=== PATIENT | female | born 1975 | race African-American/Black ===

== ENCOUNTER 2016-07-03 08:03 | Emergency (ER) | payer MEDICARE, MEDICAID ==
[2016-07-03 08:21] VITALS: BP 147/82
[2016-07-03 09:56] LABS: ABSOLUTE EOSINOPHILS # (AUTO) 0.1 10^3/uL (0.0-0.6); ABSOLUTE LYMPHOCYTES (AUTO) 1.6 10^3/uL (0.5-4.7); ABSOLUTE MONOCYTES (AUTO) 0.5 10^3/uL (0.1-1.4); ABSOLUTE NEUT (AUTO) 5.1 10^3/uL (1.7-8.2); BASOPHILS % (AUTO) 0.7 % (0-2); EOSINOPHILS % (AUTO) 0.8 % (0-6); HEMATOCRIT 35.1 % (36.0-47.0); HEMOGLOBIN 11.9 g/dL (12.0-15.5); HGB HCT DIFFERENCE 0.6; LYMPHOCYTES % (AUTO) 21.8 % (13-45); MEAN CORPUSCULAR HEMOGLOBIN 30.4 pg (27.0-33.4); MEAN CORPUSCULAR VOLUME 90 fl (80-97); MONOCYTES % (AUTO) 6.5 % (3-13); RED BLOOD COUNT 3.92 10^6/uL (3.72-5.28); RED CELL DISTRIBUTION WIDTH 14.3 % (11.5-14.0); SEGMENTED NEUTROPHILS % (AUTO) 70.2 % (42-78); WHITE BLOOD COUNT 7.3 10^3/uL (4.0-10.5)
--- NOTE | 2016-07-03 10:05 | ER Document Report ---
ED General - General Chief Complaint: Epigastric Pain Stated Complaint: STOMACH PAIN Mode of Arrival: Ambulatory Information source: Patient Notes: 41 yr old female presents with complaints of 67 (sixty seven) month duration of epigastric abd pain radiating to the back. pt denies any fevers or chills, nausea or vomiting. pt denies being seen for this previously. TRAVEL OUTSIDE OF THE [place] IN LAST 30 DAYS: No - HPI Onset: Other Onset/Duration: Persistent Quality of pain: Cramping Severity: Mild Pain Level: 1 Associated symptoms: None Exacerbated by: Denies Relieved by: Denies Similar symptoms previously: No Recently seen / treated by doctor: No - Related Data Allergies/Adverse Reactions: iodine [Iodine] Allergy (Verified 07/03/16 08:17) Past Medical History - Social History Smoking Status: Current Every Day Smoker Cigarette use (# per day): Yes Chew tobacco use (# tins/day): No Smoking Education Provided: Yes - Patient counselled regarding cessation for 4 minutes Frequency of alcohol use: Occasional Drug Abuse: None Family History: Reviewed & Not Pertinent Patient has suicidal ideation: No Patient has homicidal ideation: No Renal/ Medical History: Denies: Hx Peritoneal Dialysis Psychiatric Medical History: Reports: Hx Anxiety, Hx Bipolar Disorder, Hx Schizophrenia Past Surgical History: Reports: Hx Genitourinary Surgery, Hx Oral Surgery - Immunizations Hx Diphtheria, Pertussis, Tetanus Vaccination: Yes Review of Systems - Review of Systems Notes: REVIEW OF SYSTEMS: CONSTITUTIONAL : Denies fever, chills, or sweats. Denies recent illness. EENT: Denies eye, ear, throat, or mouth pain or symptoms. Denies nasal or sinus congestion or discharge. Denies throat, tongue, or mouth swelling or difficulty swallowing. CARDIOVASCULAR: Denies chest pain. Denies palpitations or racing or irregular heart beat. Denies ankle edema. RESPIRATORY: Denies cough, cold, or chest congestion. Denies shortness of breath, difficulty breathing, or wheezing. GASTROINTESTINAL: admits ot abdominal pain raditing ot the back . GENITOURINARY: Denies difficulty urinating, painful urination, burning, frequency, blood in urine, or discharge. MUSCULOSKELETAL: Denies back or neck pain or stiffness. Denies joint pain or swelling. SKIN: Denies rash, lesions or sores. HEMATOLOGIC : Denies easy bruising or bleeding. LYMPHATIC: Denies swollen, enlarged glands. NEUROLOGICAL: Denies confusion or altered mental status. Denies passing out or loss of consciousness. Denies dizziness or lightheadedness. Denies headache. Denies weakness or paralysis or loss of use of either side. Denies problems with gait or speech. Denies sensory loss, numbness, or tingling. Denies seizures. PSYCHIATRIC: Denies anxiety or stress. Denies depression, suicidal ideation, or homicidal ideation. ALL OTHER SYSTEMS REVIEWED AND NEGATIVE. Dictation was performed using [employer] voice recognition software PHYSICAL EXAMINATION: GENERAL: Well-appearing, well-nourished and in no acute distress. HEAD: Atraumatic, normocephalic. EYES: Pupils equal round and reactive to light, extraocular movements intact, conjunctiva are normal. ENT: Nares patent, oropharynx clear without exudates. Moist mucous membranes. NECK: Normal range of motion, supple without lymphadenopathy LUNGS: Breath sounds clear to auscultation bilaterally and equal. No wheezes rales or rhonchi. HEART: Regular rate and rhythm without murmurs ABDOMEN: Soft, nontender, nondistended abdomen. No guarding, no rebound. No masses appreciated. Female : deferred Musculoskeletal: Normal range of motion, no pitting or edema. No cyanosis. NEUROLOGICAL: Cranial nerves grossly intact. Normal speech, normal gait. Normal sensory, motor exams PSYCH: poor eye contact, slow speech SKIN: Warm, Dry, normal turgor, no rashes or lesions noted. Physical Exam - Vital signs Vitals: Temp Pulse Resp BP Pulse Ox 98.3 F 89 20 147/82 H 100 07/03/16 08:20 07/03/16 08:20 07/03/16 08:20 07/03/16 08:20 07/03/16 08:20 Course - Re-evaluation Re-evalutation: 07/03/16 10:03 Physical examination notes no specific abnormalities,lab work was drawn and pending Pt wishes to leave, I explained to her this is not a compelte work up, patient is alert oriented x3 , has no suicidal or homicdal ideations. I explained ot her risks and benefits and she continues to wants to leave. Will call with results of blood work. Pt was brought back to the room, where she stayed for a few minutes, then immediately said she wanted to leave again, AMA instructions provided again 07/03/16 10:05 After performing a Medical Screening Examination, I spoke with the patient at length in regards to leaving the hospital against medical advice. I do not believe the patient should leave but the patient is alert oriented x4, understands the risks and benefits of staying and leaving including disability and . Pt understands that she can return at any time for further care and is more than welcome to do so. Pt verbalizes this understanding. 07/03/16 16:49 patient given results of completed labs, notified about cmp 07/03/16 16:50 07/03/16 16:51 - Vital Signs Vital signs: Temp Pulse Resp BP Pulse Ox 98.3 F 89 20 147/82 H 100 07/03/16 08:20 07/03/16 08:20 07/03/16 08:20 07/03/16 08:20 07/03/16 08:20 - Laboratory Result Diagrams: 07/03/16 09:35 07/03/16 09:35 Laboratory results interpreted by me: 07/03/16 07/03/16 09:35 09:35 Hgb 11.9 L Hct 35.1 L RDW 14.3 H Urine Ketones TRACE H Discharge - Discharge Clinical Impression: Abdominal pain Qualifiers: Abdominal location: epigastric Qualified Code(s): R10.13 - Epigastric pain Back pain Qualifiers: Back pain location: low back pain Chronicity: chronic Back pain laterality: bilateral Sciatica presence: without sciatica Qualified Code(s): M54.5 - Low back pain; G89.29 - Other chronic pain Disposition: AGAINST MEDICAL ADVICE Additional Instructions: You have left prior to labs and discharge instructions, patient orally explained to return immediately if there is any other concerns Referrals: JASPREET LEE MD [Primary Care Provider] - Follow up tomorrow
[2016-07-03 10:34] LABS: APPEARANCE,URINE CLEAR; BILIRUBIN,URINE NEGATIVE (NEGATIVE); GLUCOSE, URINE NEGATIVE (NEGATIVE); KETONES,URINE TRACE mg/dL (NEGATIVE); LEUKOCYTE ESTERASE,URINE NEGATIVE (NEGATIVE); NITRITE,URINE NEGATIVE (NEGATIVE); PROTEIN,URINE NEGATIVE (NEGATIVE); URINE SPECIFIC GRAVITY 1.017; UROBILINOGEN,URINE NEGATIVE mg/dL (<2.0)
== END 2016-07-03 10:04 | disposition left against medical advice (07) ==
LOC: ER 08:03
DX: R10.13 Epigastric pain (principal); M54.5 Low back pain; G89.29 Other chronic pain; F17.210 Nicotine dependence, cigarettes, uncomplicated; Z71.6 Tobacco abuse counseling; Z88.3 Allergy status to other anti-infective agents; Z53.20 Procedure and treatment not carried out because of patient's decision for unspecified reasons; R53.1 Weakness; R45.850 Homicidal ideations
CPT/HCPCS: 36415; 81001; 81025; 85025; 99281; 99284

== ENCOUNTER 2016-07-03 10:35 | Emergency (ER) | payer MEDICARE, MEDICAID ==
--- NOTE | 2016-07-03 10:43 | ER Document Report ---
ED Medical Screen (RME) - General Stated Complaint: WEAKNESS Time seen by provider: 10:39 Mode of Arrival: Ambulatory Information source: Patient TRAVEL OUTSIDE OF THE [place] IN LAST 30 DAYS: No - HPI Patient complains to provider of: WEAKNESS Onset: Other - 6-7 MONTHS Onset/Duration: Gradual Context: PT WAS JUST HERE THIS AM AND HAD LABS DRAWN. LEFT AMA. Quality of pain: Pressure Severity: Severe Pain Level: 5 Associated Symptoms: Weakness, Other - BACK PAIN Exacerbated by: Denies Relieved by: Denies Similar symptoms previously: Yes Recently seen / treated by doctor: Yes - IN ER THIS AM Notes: 07/03/16 10:43 DENIES SUICIDAL IDEATION, STATES WANTS TO HARM OTHERS AT TIME WHEN ASKED ( LAUGHING WHEN SHE SAYS THIS IN RME) - Related Data Smoking: Cigarettes Frequency of alcohol use: Occasional Drug Abuse: None Pertinent History: BIPOLAR SCHIZOPHRENIA Allergies/Adverse Reactions: iodine [Iodine] Allergy (Verified 07/03/16 08:17) Past Medical History Renal/ Medical History: Denies: Hx Peritoneal Dialysis Psychiatric Medical History: Reports: Hx Anxiety, Hx Bipolar Disorder, Hx Schizophrenia Past Surgical History: Reports: Hx Genitourinary Surgery, Hx Oral Surgery - Immunizations Hx Diphtheria, Pertussis, Tetanus Vaccination: Yes
[2016-07-03 10:46] VITALS: BP 151/88
== END 2016-07-03 11:01 | disposition left against medical advice (07) ==
LOC: ER 10:35
DX: R53.1 Weakness (principal); M54.9 Dorsalgia, unspecified; R45.850 Homicidal ideations; F17.210 Nicotine dependence, cigarettes, uncomplicated; Z88.3 Allergy status to other anti-infective agents; Z53.20 Procedure and treatment not carried out because of patient's decision for unspecified reasons
CPT/HCPCS: 99281

== ENCOUNTER 2016-08-13 17:23 | Emergency (ER) | payer MEDICARE, MEDICAID ==
[2016-08-13 18:07] VITALS: BP 137/97
--- NOTE | 2016-08-13 18:31 | ER Document Report ---
ED Medical Screen (RME) - General Stated Complaint: TEST Notes: Patient comes to the emergency room today via EMS to find out if she is . States last period ended 2 days ago. No pain. I have greeted and performed a rapid initial assessment of this patient. A comprehensive ED assessment and evaluation of the patient, analysis of test results and completion of the medical decision making process will be conducted by additional ED providers. TRAVEL OUTSIDE OF THE [place] IN LAST 30 DAYS: No - Related Data Allergies/Adverse Reactions: iodine [Iodine] Allergy (Verified 07/03/16 08:17) Past Medical History Renal/ Medical History: Denies: Hx Peritoneal Dialysis Psychiatric Medical History: Reports: Hx Anxiety, Hx Bipolar Disorder, Hx Schizophrenia Past Surgical History: Reports: Hx Genitourinary Surgery, Hx Oral Surgery - Immunizations Hx Diphtheria, Pertussis, Tetanus Vaccination: Yes Physical Exam - Vital signs Vitals: Temp Pulse Resp BP Pulse Ox 98.9 F 98 16 137/97 H 98 08/13/16 18:05 08/13/16 18:05 08/13/16 18:05 08/13/16 18:05 08/13/16 18:05 - General General appearance: Appears well, Alert In distress: None Course - Vital Signs Vital signs: Temp Pulse Resp BP Pulse Ox 98.9 F 98 16 137/97 H 98 08/13/16 18:05 08/13/16 18:05 08/13/16 18:05 08/13/16 18:05 08/13/16 18:05
--- NOTE | 2016-08-13 20:20 | ER Document Report ---
HPI - HPI Patient complains to provider of: need for test Onset: Other - Several weeks Onset/Duration: Gradual Quality of pain: No pain Pain Level: Denies Context: Patient presents requesting a test be performed. Patient feels that occasionally she will feel like something is moving in her abdomen and once to make sure that she is not . Patient states she has been having her period regularly each month but would like confirmation that she is not . Associated Symptoms: Other - Movement sensation in her abdomen Exacerbated by: Denies Relieved by: Denies Similar symptoms previously: No Recently seen / treated by doctor: No - ROS ROS below otherwise negative: Yes Systems Reviewed and Negative: Yes All other systems reviewed and negative - CONSTITUTIONAL Constitutional: DENIES: Fever, Chills - NEURO Neurology: DENIES: Headache, Weakness - CARDIOVASCULAR Cardiovascular: DENIES: Chest pain - RESPIRATORY Respiratory: DENIES: Trouble Breathing, Coughing - GASTROINTESTINAL Gastrointestinal: DENIES: Abdominal Pain, Nausea, Patient vomiting, Constipation - REPRODUCTIVE Reproductive: DENIES: : - MUSCULOSKELETAL Musculoskeletal: DENIES: Extremity pain, Back Pain - DERM Skin Color: Normal Skin Problems: None Past Medical History - General Information source: Patient - Social History Smoking Status: Current Every Day Smoker Chew tobacco use (# tins/day): No Frequency of alcohol use: None Drug Abuse: None Lives with: Alone Family History: Reviewed & Not Pertinent Patient has suicidal ideation: No Patient has homicidal ideation: No Renal/ Medical History: Denies: Hx Peritoneal Dialysis Psychiatric Medical History: Reports: Hx Anxiety, Hx Bipolar Disorder, Hx Schizophrenia Past Surgical History: Reports: Hx Genitourinary Surgery, Hx Oral Surgery - Immunizations Hx Diphtheria, Pertussis, Tetanus Vaccination: Yes Vertical Provider Document - CONSTITUTIONAL Agree With Documented VS: Yes Exam Limitations: No Limitations General Appearance: WD/WN, No Apparent Distress - INFECTION CONTROL TRAVEL OUTSIDE OF THE [place] IN LAST 30 DAYS: No - HEENT HEENT: Atraumatic, Normocephalic - NECK Neck: Normal Inspection, Supple - RESPIRATORY Respiratory: Breath Sounds Normal, No Respiratory Distress, Chest Non-Tender O2 Sat by Pulse Oximetry: 98 - CARDIOVASCULAR Cardiovascular: Regular Rate, Regular Rhythm, No Murmur - GI/ABDOMEN Gastrointestinal: Abdomen Soft, Abdomen Non-Tender, No Organomegaly - BACK Back: Normal Inspection. negative: CVA Tenderness-Right, CVA Tenderness-Left - MUSCULOSKELETAL/EXTREMETIES Musculoskeletal/Extremeties: GURWINDER MIRLANDE - NEURO Level of Consciousness: Awake, Alert, Appropriate - DERM Integumentary: Warm, Dry Course - Re-evaluation Re-evalutation: 08/13/16 Patient reiterates that she is not confused or having mental health issues tonight. Patient states that she simply wants to make sure that nothing is going on in her abdomen to cause the sensation that she has been having something feel like it is moving in her abdomen. Patient's mother is at bedside , patient is agreeable to have her care discussed with her family. Mother is concerned that patient's medications might need adjusting as she feels that patient has been confused at times. Daughter is argumentative with her mother stating that she is not crazy that she actually has been having people break into her house. Mother states that daughter has been calling the police several times over the past week regarding suspected break-ins in her apartment. Daughter states that the police did show up and did state that they' ve been having break-ins in her neighborhood.Patient without any suicidal or homicidal ideation. Discussed with patient that she could stay for further mental health evaluation voluntarily if she would like that she can follow-up with her mental health specialist on Tuesday to reevaluate her medication regimen. Patient does not appear to be a harm to herself or anyone else at this time. Patient has her medications with her and states she has been compliant with taking her medications. Patient denies any visual or auditory hallucinations. - Vital Signs Vital signs: Temp Pulse Resp BP Pulse Ox 98.9 F 98 16 137/97 H 98 08/13/16 18:05 08/13/16 18:05 08/13/16 18:05 08/13/16 18:05 08/13/16 18:05 - Laboratory Laboratory results interpreted by me: 08/13/16 21:42 Labs- Last Values Urine HCG, Qual NEGATIVE (NEGATIVE) 08/13/16 19:55 - Diagnostic Test Radiology reviewed: Image reviewed, Reports reviewed Discharge - Discharge Clinical Impression: concern about possible Condition: Stable Disposition: HOME, SELF-CARE Instructions: Normal Exam and Workup ([facility]) Additional Instructions: Return immediately for any new or worsening symptoms Followup with your primary care provider, call Tuesday to make a followup appointment Follow-up with your mental health provider to reevaluate your current medication regimen Referrals: ROCÍO FLORES MD [Primary Care Provider] - 08/16/16 [facility] [Provider Group] - 08/16/16
== END 2016-08-13 21:45 | disposition home or self-care (01) ==
LOC: ER 17:23
DX: Z32.02 Encounter for pregnancy test, result negative (principal); R19.8 Other specified symptoms and signs involving the digestive system and abdomen; F17.200 Nicotine dependence, unspecified, uncomplicated
CPT/HCPCS: 74000; 81025; 99283

== ENCOUNTER 2016-08-14 05:53 | Emergency (ER) | payer MEDICARE, MEDICAID ==
--- NOTE | 2016-08-14 08:47 | ER Document Report ---
ED General - General Chief Complaint: Psych Problem Stated Complaint: PSYCH EVAL Mode of Arrival: Ambulatory Information source: Patient, [facility] Records Notes: This is a 41-year-old female with a prior psychiatric history of depression and anxiety and schizophrenia who presents for evaluation. She is a poor historian but states that she is here because she is concerned that she may have tumors in her stomach in that possibly there is "a baby behind it". She denies any abdominal pain. She cannot tell me why she feels this way. She does state that she has no thoughts of hurting herself or anyone else. She also reports compliance with her medications. TRAVEL OUTSIDE OF THE [place] IN LAST 30 DAYS: No - Related Data Allergies/Adverse Reactions: iodine [Iodine] Allergy (Verified 08/14/16 14:44) Home Medications: Current Home Medications Benztropine Mesylate 1 tab PO BID 08/14/16 [History] Buspirone HCl 1 tab PO TID 08/14/16 [History] Cariprazine Hydrochloride [Vraylar] 1 cap PO QHS 08/14/16 [History] Topiramate 1 tab PO BID 08/14/16 [History] Past Medical History - General Information source: [facility] Records - Social History Smoking Status: Current Every Day Smoker Chew tobacco use (# tins/day): No Frequency of alcohol use: Rare Drug Abuse: None Family History: Reviewed & Not Pertinent Patient has suicidal ideation: No Patient has homicidal ideation: No Renal/ Medical History: Denies: Hx Peritoneal Dialysis Psychiatric Medical History: Reports: Hx Anxiety, Hx Bipolar Disorder, Hx Schizophrenia Past Surgical History: Reports: Hx Genitourinary Surgery, Hx Oral Surgery - Immunizations Hx Diphtheria, Pertussis, Tetanus Vaccination: Yes Review of Systems - Review of Systems Constitutional: No symptoms reported. denies: Chills, Fever EENT: No symptoms reported Cardiovascular: No symptoms reported. denies: Chest pain Respiratory: No symptoms reported. denies: Cough, Short of breath Gastrointestinal: See HPI Genitourinary: No symptoms reported. denies: Dysuria Musculoskeletal: No symptoms reported Skin: No symptoms reported Neurological/Psychological: See HPI Physical Exam - Vital signs Vitals: Temp Pulse Resp BP Pulse Ox 98.2 F 91 16 140/86 H 97 08/14/16 06:10 08/14/16 06:10 08/14/16 06:10 08/14/16 06:10 08/14/16 06:10 - Notes Notes: PHYSICAL EXAMINATION: GENERAL: Well-appearing, well-nourished and in no acute distress. Intermittently cooperative with interview, but at times quiet. HEAD: Atraumatic, normocephalic. EYES: Pupils equal round and reactive to light, extraocular movements intact, sclera anicteric, conjunctiva are normal. ENT: nares patent, oropharynx clear without exudates. Moist mucous membranes. NECK: Normal range of motion, supple without lymphadenopathy LUNGS: Breath sounds clear to auscultation bilaterally and equal. No wheezes rales or rhonchi. HEART: Regular rate and rhythm without murmurs ABDOMEN: Soft, nontender, obese, normoactive bowel sounds. No guarding, no rebound. No masses appreciated. EXTREMITIES: Normal range of motion, no pitting or edema. No cyanosis. NEUROLOGICAL: Cranial nerves grossly intact. Normal gait. No focal motor or sensory deficits noted. PSYCH: Normal mood, flat affect SKIN: Warm, Dry, normal turgor, no rashes or lesions noted. Course - Re-evaluation Re-evalutation: 08/14/16 10:15 Discussed with mental health services who has evaluated the patient. They agree that patient is not a candidate for obviously at this time. However patient does agree to stay voluntarily for continued exploration of psychiatric basis of her abdominal complaints. 08/14/16 11:52 Labs reviewed and within normal limits. Patient is not . She has had multiple conversations with the mental health provider here in the ER, and has gone back and forth with wanting to just leave and then wanting to stay to talk to mental health. She has eaten a meal here. She is feeling fine at this time. She is not a danger to herself or others and meets no criteria for IVC today. At this time she is stable for discharge. She is already a patient at [facility]. She continues to deny any thoughts of hurting herself or others. She will return for any worsening symptoms or concerns. At this time there is no criteria for involuntary commitment. - Vital Signs Vital signs: Temp Pulse Resp BP Pulse Ox 97.9 F 85 16 115/90 H 98 08/14/16 12:14 08/14/16 12:14 08/14/16 12:14 08/14/16 12:14 08/14/16 12:14 - Laboratory Result Diagrams: 08/14/16 07:54 08/14/16 07:54 Laboratory results interpreted by me: 08/14/16 08/14/16 08/14/16 07:54 07:54 07:54 RDW 14.2 H Sodium 146.0 H Chloride 110 H Carbon Dioxide 20 L Urine Blood SMALL H Salicylates < 1.0 L Acetaminophen < 10 L Discharge - Discharge Clinical Impression: concern about possible Schizophrenia Qualifiers: Schizophrenia type: unspecified Qualified Code(s): F20.9 - Schizophrenia, unspecified Condition: Stable Disposition: HOME, SELF-CARE Additional Instructions: Continue your home medications as prescribed. Please follow-up with your mental health provider at [facility] this week. Return to the emergency department or call 911 for any thoughts of hurting herself or others. Return to the ER for any worsening symptoms or concerns. Referrals: ROCÍO FLORES MD [Primary Care Provider] - Follow up as needed
[2016-08-14 09:08] LABS: ABSOLUTE EOSINOPHILS # (AUTO) 0.1 10^3/uL (0.0-0.6); ABSOLUTE LYMPHOCYTES (AUTO) 1.6 10^3/uL (0.5-4.7); ABSOLUTE MONOCYTES (AUTO) 0.5 10^3/uL (0.1-1.4); ABSOLUTE NEUT (AUTO) 3.2 10^3/uL (1.7-8.2); BASOPHILS % (AUTO) 0.6 % (0-2); EOSINOPHILS % (AUTO) 1.9 % (0-6); HEMATOCRIT 37.2 % (36.0-47.0); HEMOGLOBIN 12.4 g/dL (12.0-15.5); LYMPHOCYTES % (AUTO) 29.9 % (13-45); MEAN CORPUSCULAR HEMOGLOBIN 30.5 pg (27.0-33.4); MEAN CORPUSCULAR HGB CONC 33.4 g/dL (32.0-36.0); MEAN CORPUSCULAR VOLUME 91 fl (80-97); MONOCYTES % (AUTO) 8.3 % (3-13); RED BLOOD COUNT 4.08 10^6/uL (3.72-5.28); RED CELL DISTRIBUTION WIDTH 14.2 % (11.5-14.0); SEGMENTED NEUTROPHILS % (AUTO) 59.3 % (42-78); WHITE BLOOD COUNT 5.5 10^3/uL (4.0-10.5)
[2016-08-14 09:14] LABS: ALANINE AMINOTRANSFERASE 22 U/L (9-52); ALBUMIN 4.2 g/dL (3.5-5.0); ALKALINE PHOSPHATASE 70 U/L (38-126); ANION GAP 16 (5-19); ASPARTATE AMINO TRANSFERASE 28 U/L (14-36); BILIRUBIN,TOTAL 0.4 mg/dL (0.2-1.3); BLOOD UREA NITROGEN 12 mg/dL (7-20); CARBON DIOXIDE 20 mmol/L (22-30); CHLORIDE 110 mmol/L (98-107); CREATININE RESULT 0.79 mg/dL (0.52-1.25); GLUCOSE 93 mg/dL (75-110); POTASSIUM 4.5 mmol/L (3.6-5.0); TOTAL PROTEIN 7.4 g/dL (6.3-8.2)
[2016-08-14 09:27] LABS: ALCOHOL < 10 mg/dL (NONE DETECTED)
[2016-08-14 09:28] LABS: APPEARANCE,URINE SLIGHTLY-CLOUDY; BILIRUBIN,URINE NEGATIVE (NEGATIVE); GLUCOSE, URINE NEGATIVE (NEGATIVE); KETONES,URINE NEGATIVE (NEGATIVE); LEUKOCYTE ESTERASE,URINE NEGATIVE (NEGATIVE); NITRITE,URINE NEGATIVE (NEGATIVE); PROTEIN,URINE NEGATIVE (NEGATIVE); URINE SPECIFIC GRAVITY 1.024; UROBILINOGEN,URINE NEGATIVE mg/dL (<2.0)
[2016-08-14 09:46] LABS: URINE BARBITURATES SCREEN NEGATIVE; URINE METHADONE SCREEN NEGATIVE; URINE OPIATES LOW NEGATIVE; URINE PHENCYCLIDINE SCREEN NEGATIVE
[2016-08-14 12:15] VITALS: BP 115/90
--- NOTE | 2016-08-14 15:37 | PSYCHOLOGICAL NOTE ---
Psych Note - Psych Note Psych Note: Per EMS pt has been calling 911 frequently reporting that "people are trying to get into her house." EMS states pt lives alone and has a hx of Schizophrenia. Pt presents today to get her medications checked pt is calm and has a pleasant affect. Pt denies pain. Pt states she doesn't know if she is hearing voices. Pt denies SI or HI. Patient discloses she has a diagnosis of bipolar and schizophrenia. She continued to disclose that she was taking shots however moved to pills and thinks this was a bad choice. She continue disclosed that she hears voices on and off. Patient states that she does have in her past and went to "the [employer]." She continues state that she has a provider [facility] approximately 2 weeks ago. She states that she has no intent to hurt herself or others. Patient denies current suicidal ideation. Patient is concerned about stomach pain; she thinks she is either or had a tumor. Clinician notes patient has been into the ED on multiple occasions with some of her concerns with no findings. Patient states she does not remember being with anybody but she never no when it comes to . Patient states that she had one miscarriage when she was approximately 5 months along and her last was in 2014 which was tubal. Clinician discussed patient's concerns and identified possible correlation to symptoms from patient's unsuccessful pregnancies and her current mental health presentation. Patient seemed to be unwilling or unable to understand this. Patient states she did have an act team in the past however denies she has one now. Patient openly engaged with clinician and describes her past from her first job to becoming independent patient states "money changes people." Patient states she was in a relationship for 4 years but he was "bad." Patient states she is now [place]. Patient is alert and orientated to person place time and circumstance. Mood is euthymic with congruent affect. Patient denies suicidal and homicidal ideation. Patient states that currently there are no auditory or visual hallucinations however disclosed that the voices do come and go. Somatic delusions are noted. Thought process is organized and linear however lapses into "stories of her past." Patient will answer direct questions has low difficulty in moving between her story and questions asked by clinician. Conversational speech was within normal rate tone and prosody. Eye contact was fair. Intellectual abilities appear to be low average range. Attention and concentration are fair. Insight, judgment, impulse control are poor. 298.9 (F29) unspecified schizophrenia spectrum and other psychotic disorder per history provided by patient 296.80(F31.9) unspecified bipolar and related disorder per history provided by patient Impression\\plan: Patient does not meet IVC 3 teary per [place] GS 120 2C. All patient is exhibiting some somatic delusions and discloses auditory hallucinations that come and go, these appear to be baseline for her going back to 2014. Patient adamantly denies was suicidal ideation. Patient is psychiatrically cleared for discharge. Patient is recommended follow-up with home mental health provider [facility]. Dr. Cruz was consulted on [facility] management of this patient; attending physician is in agreement with recommendations and disposition.
--- NOTE | 2016-08-14 16:12 | EKG REPORT ---
SEVERITY:- NORMAL ECG - SINUS RHYTHM : Confirmed by: Juliette Tamez MD 14-Aug-2016 16:11:28
== END 2016-08-14 12:20 | disposition home or self-care (01) ==
LOC: ER 05:53
DX: F20.9 Schizophrenia, unspecified (principal); F32.9 Major depressive disorder, single episode, unspecified; F41.9 Anxiety disorder, unspecified; Z79.899 Other long term (current) drug therapy; F17.200 Nicotine dependence, unspecified, uncomplicated
CPT/HCPCS: 36415; 80053; 80307; 81001; 84703; 85025; 93005; 93010; 99282; 99285

== ENCOUNTER 2016-08-14 14:33 | Emergency (ER) | payer MEDICARE, MEDICAID ==
--- NOTE | 2016-08-14 14:41 | ER Document Report ---
ED Medical Screen (RME) - General Stated Complaint: ABDOMINAL PAIN Notes: This is a 41-year-old female with a prior psychiatric history of depression and anxiety and schizophrenia who returns to the ED after discharge this afternoon. She denies any abdominal pain currently. Denies any nausea, vomiting, diarrhea, constipation. Per previous notes, mental health team says that the patient is not a candidate for obviously at this time. Patient is not . She continues to deny any thoughts of hurting herself or others. TRAVEL OUTSIDE OF THE [place] IN LAST 30 DAYS: No - Related Data Allergies/Adverse Reactions: iodine [Iodine] Allergy (Verified 08/14/16 14:44) Past Medical History Renal/ Medical History: Denies: Hx Peritoneal Dialysis Psychiatric Medical History: Reports: Hx Anxiety, Hx Bipolar Disorder, Hx Schizophrenia Past Surgical History: Reports: Hx Genitourinary Surgery, Hx Oral Surgery - Immunizations Hx Diphtheria, Pertussis, Tetanus Vaccination: Yes
[2016-08-14] MEDS ORDERED: HALOPERIDOL DECANOATE INJ 100 MG/1 ML VIAL IM ONE (16:11)
--- NOTE | 2016-08-14 16:20 | ER Document Report ---
HPI - HPI Patient complains to provider of: prescriptions Pain Level: 4 Context: Patient presents to the emergency department with request for medication prescriptions via EMS. She reports she was discharged earlier today and did not receive her prescriptions. Pancho from mental health reports that they thought patient had prescriptions and would follow-up with [facility]] but it is apparent that she did not since she returned to the ED. Pancho from mental health advises prescription for Cogentin and Haldol. Also advised injection of Haldol 50 mg IM. Patient denies suicide or homicide ideations. Associated Symptoms: None Exacerbated by: Denies Relieved by: Denies Similar symptoms previously: Yes Recently seen / treated by doctor: Yes - REPRODUCTIVE Reproductive: DENIES: : - DERM Skin Color: Normal Past Medical History - General Information source: Patient Last Menstrual Period: 2 days ago - Social History Smoking Status: Current Every Day Smoker Cigarette use (# per day): Yes Chew tobacco use (# tins/day): No Frequency of alcohol use: None Drug Abuse: None Family History: Reviewed & Not Pertinent Patient has suicidal ideation: No Patient has homicidal ideation: No Renal/ Medical History: Denies: Hx Peritoneal Dialysis Psychiatric Medical History: Reports: Hx Anxiety, Hx Bipolar Disorder, Hx Schizophrenia Past Surgical History: Reports: Hx Genitourinary Surgery, Hx Oral Surgery - Immunizations Hx Diphtheria, Pertussis, Tetanus Vaccination: Yes Vertical Provider Document - CONSTITUTIONAL Agree With Documented VS: Yes Exam Limitations: No Limitations General Appearance: WD/WN, No Apparent Distress - Nontoxic looking calm - INFECTION CONTROL TRAVEL OUTSIDE OF THE [place] IN LAST 30 DAYS: No - HEENT HEENT: Atraumatic, Normocephalic - NECK Neck: Supple - RESPIRATORY Respiratory: No Respiratory Distress - CARDIOVASCULAR Cardiovascular: Regular Rate - MUSCULOSKELETAL/EXTREMETIES Musculoskeletal/Extremeties: MIRLANDE PURDY - NEURO Level of Consciousness: Awake, Alert, Appropriate Motor/Sensory: No Motor Deficit - DERM Integumentary: Warm, Dry Course - Re-evaluation Re-evalutation: 08/14/16 16:36 Patient declined Haldol IM. Patient was instructed to follow up with [facility]3] on Tuesday and take medications as prescribed. She verbalized understanding. She reports the Haldol will not work on her anymore because she is immune. When I asked her to clarify the patient was unable to clarify but denied signs and symptoms of allergic reaction. Pt is calm, denies SI/HI. Mental health Nathan reports pt is safe to be discharged. Discharge - Discharge Clinical Impression: medication prescription, Elevated blood pressure reading Condition: Stable Disposition: HOME, SELF-CARE Additional Instructions: *You have been evaluated for your medication prescriptions, elevated blood pressure reading *Take medication as prescribed *Follow up with your mental health provider Tuesday. *Return to ED for worsening condition, changes, needs Monitor your blood pressure. Your blood pressure was elevated today. This may be because you were anxious, in pain or because you need medication. It is important to follow up with your primary care provider for full evaluation. Prescriptions: Benztropine Mesylate [Cogentin 1 mg Tablet] 1 tab PO DAILY #14 tab Haloperidol [Haldol 5 mg Tablet] 5 mg PO DAILY #14 tablet Forms: Elevated Blood Pressure Referrals: [facility] [Outside] - 08/16/16
[2016-08-14 16:40] VITALS: BP 143/92
== END 2016-08-14 16:39 | disposition home or self-care (01) ==
LOC: ER 14:33
DX: Z76.0 Encounter for issue of repeat prescription (principal); R03.0 Elevated blood-pressure reading, without diagnosis of hypertension; F17.210 Nicotine dependence, cigarettes, uncomplicated; Z79.899 Other long term (current) drug therapy
CPT/HCPCS: 99282

== ENCOUNTER 2016-08-14 18:51 | Emergency (ER) | payer MEDICARE, MEDICAID ==
[2016-08-14 19:10] VITALS: BP 154/92
--- NOTE | 2016-08-14 19:26 | ER Document Report ---
ED Medical Screen (RME) - General Stated Complaint: STOMACH PAIN Notes: Patient has checked back in for evaluation of her stomach pain. Patient was discharged twice today for the same complaint. She has not left the department. she refuses treatment at this time. LWVERN I have greeted and performed a rapid initial assessment of this patient. A comprehensive ED assessment and evaluation of the patient, analysis of test results and completion of the medical decision making process will be conducted by additional ED providers. TRAVEL OUTSIDE OF THE U.[place] IN LAST 30 DAYS: No - Related Data Allergies/Adverse Reactions: iodine [Iodine] Allergy (Verified 08/14/16 14:44) Past Medical History Renal/ Medical History: Denies: Hx Peritoneal Dialysis Psychiatric Medical History: Reports: Hx Anxiety, Hx Bipolar Disorder, Hx Schizophrenia Past Surgical History: Reports: Hx Genitourinary Surgery, Hx Oral Surgery - Immunizations Hx Diphtheria, Pertussis, Tetanus Vaccination: Yes Physical Exam - Vital signs Vitals: Temp Pulse Resp BP Pulse Ox 98.5 F 77 14 154/92 H 99 08/14/16 19:09 08/14/16 19:09 08/14/16 19:09 08/14/16 19:09 08/14/16 19:09 Course - Vital Signs Vital signs: Temp Pulse Resp BP Pulse Ox 98.5 F 77 14 154/92 H 99 08/14/16 19:09 08/14/16 19:09 08/14/16 19:09 08/14/16 19:09 08/14/16 19:09
== END 2016-08-14 19:38 | disposition left against medical advice (07) ==
LOC: ER 18:51
DX: R10.9 Unspecified abdominal pain (principal)
CPT/HCPCS: 99281

== ENCOUNTER 2016-08-16 12:23 | Emergency (ER) | payer MEDICARE, MEDICAID ==
--- NOTE | 2016-08-16 13:40 | ER Document Report ---
ED Medical Screen (RME) - General Stated Complaint: IVC WITH PAPERS Time seen by provider: 13:39 Mode of Arrival: Ambulatory Information source: Patient Notes: 41-year-old female presents to ED after having an IVC papers taken out as she is a schizophrenic paranoid bipolar not taken her medications hearing voices and has her home with 2 children threatens to hurt self. While in RME she states she's not thinking about hurting himself but her voice is to talk to her I have greeted and performed a rapid initial assessment of this patient. A comprehensive ED assessment and evaluation of the patient, analysis of test results and completion of medical decision making process will be conducted by an additional ED providers. TRAVEL OUTSIDE OF THE [place] IN LAST 30 DAYS: No - Related Data Allergies/Adverse Reactions: iodine [Iodine] Allergy (Verified 08/14/16 14:44) Past Medical History Renal/ Medical History: Denies: Hx Peritoneal Dialysis Psychiatric Medical History: Reports: Hx Anxiety, Hx Bipolar Disorder, Hx Schizophrenia Past Surgical History: Reports: Hx Genitourinary Surgery, Hx Oral Surgery - Immunizations Hx Diphtheria, Pertussis, Tetanus Vaccination: Yes Physical Exam - Vital signs Vitals: Temp Pulse Resp BP Pulse Ox 98.5 F 96 16 138/98 H 97 08/16/16 13:31 08/16/16 13:31 08/16/16 13:31 08/16/16 13:31 08/16/16 13:31 Course - Vital Signs Vital signs: Temp Pulse Resp BP Pulse Ox 98.5 F 96 16 138/98 H 97 08/16/16 13:31 08/16/16 13:31 08/16/16 13:31 08/16/16 13:31 08/16/16 13:31
[2016-08-16 15:20] LABS: ABSOLUTE BASOPHILS # (AUTO) 0.1 10^3/uL (0.0-0.2); ABSOLUTE EOSINOPHILS # (AUTO) 0.1 10^3/uL (0.0-0.6); ABSOLUTE LYMPHOCYTES (AUTO) 1.6 10^3/uL (0.5-4.7); ABSOLUTE MONOCYTES (AUTO) 0.3 10^3/uL (0.1-1.4); ABSOLUTE NEUT (AUTO) 3.6 10^3/uL (1.7-8.2); BASOPHILS % (AUTO) 1.2 % (0-2); EOSINOPHILS % (AUTO) 1.9 % (0-6); HEMATOCRIT 36.2 % (36.0-47.0); HEMOGLOBIN 12.1 g/dL (12.0-15.5); HGB HCT DIFFERENCE 0.1; LYMPHOCYTES % (AUTO) 28.6 % (13-45); MEAN CORPUSCULAR HGB CONC 33.4 g/dL (32.0-36.0); MEAN CORPUSCULAR VOLUME 90 fl (80-97); MONOCYTES % (AUTO) 5.9 % (3-13); RED BLOOD COUNT 4.03 10^6/uL (3.72-5.28); RED CELL DISTRIBUTION WIDTH 13.9 % (11.5-14.0); SEGMENTED NEUTROPHILS % (AUTO) 62.4 % (42-78); WHITE BLOOD COUNT 5.8 10^3/uL (4.0-10.5)
[2016-08-16 15:21] LABS: BLOOD UREA NITROGEN 12 mg/dL (7-20); CALCIUM 10.1 mg/dL (8.4-10.2); CARBON DIOXIDE 24 mmol/L (22-30); CHLORIDE 107 mmol/L (98-107); CREATININE RESULT 0.91 mg/dL (0.52-1.25); GLUCOSE 93 mg/dL (75-110); POTASSIUM 4.5 mmol/L (3.6-5.0)
[2016-08-16 15:22] LABS: ALANINE AMINOTRANSFERASE 35 U/L (9-52); ALBUMIN 4.5 g/dL (3.5-5.0); ALCOHOL < 10 mg/dL (NONE DETECTED); ALKALINE PHOSPHATASE 69 U/L (38-126); ANION GAP 12 (5-19); ASPARTATE AMINO TRANSFERASE 42 U/L (14-36); BILIRUBIN,DIRECT 0.3 mg/dL (0.0-0.4); BILIRUBIN,TOTAL 0.5 mg/dL (0.2-1.3); SODIUM 143.4 mmol/L (137-145); TOTAL PROTEIN 7.8 g/dL (6.3-8.2)
[2016-08-16 15:34] LABS: APPEARANCE,URINE CLEAR; BILIRUBIN,URINE NEGATIVE (NEGATIVE); GLUCOSE, URINE NEGATIVE (NEGATIVE); KETONES,URINE TRACE mg/dL (NEGATIVE); LEUKOCYTE ESTERASE,URINE NEGATIVE (NEGATIVE); NITRITE,URINE NEGATIVE (NEGATIVE); PROTEIN,URINE NEGATIVE (NEGATIVE); URINE SPECIFIC GRAVITY 1.009; UROBILINOGEN,URINE NEGATIVE mg/dL (<2.0)
[2016-08-16 15:49] LABS: URINE BARBITURATES SCREEN NEGATIVE; URINE METHADONE SCREEN NEGATIVE; URINE OPIATES LOW NEGATIVE; URINE PHENCYCLIDINE SCREEN NEGATIVE
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
--- NOTE | 2016-08-16 16:05 | ER Document Report ---
ED General - General Chief Complaint: Psych Problem Stated Complaint: IVC WITH PAPERS Mode of Arrival: Ambulatory Information source: Patient, Law Enforcement, H Records Notes: 41-year-old female history of paranoid schizophrenia presents being off her medication for the past 3 months after calling the police 17 times in the past week with concerns that people were in her house. Patient denies any other concerns denies any medical problems at this time TRAVEL OUTSIDE OF THE [place] IN LAST 30 DAYS: No - HPI Onset: Last week Onset/Duration: Persistent Quality of pain: No pain Severity: Mild Pain Level: Denies Associated symptoms: Other Exacerbated by: Denies Relieved by: Denies Similar symptoms previously: Yes Recently seen / treated by doctor: Yes - Related Data Allergies/Adverse Reactions: iodine [Iodine] Allergy (Verified 08/16/16 13:40) Past Medical History - General Information source: Patient - Social History Smoking Status: Current Every Day Smoker Cigarette use (# per day): Yes Chew tobacco use (# tins/day): No Smoking Education Provided: Yes - Patient counselled regarding cessation for 4 minutes Frequency of alcohol use: Occasional Drug Abuse: None Family History: Reviewed & Not Pertinent Patient has suicidal ideation: No Patient has homicidal ideation: No Renal/ Medical History: Denies: Hx Peritoneal Dialysis Psychiatric Medical History: Reports: Hx Anxiety, Hx Bipolar Disorder, Hx Schizophrenia Past Surgical History: Reports: Hx Genitourinary Surgery, Hx Oral Surgery - Immunizations Hx Diphtheria, Pertussis, Tetanus Vaccination: Yes Review of Systems - Review of Systems Notes: REVIEW OF SYSTEMS: CONSTITUTIONAL : Denies fever, chills, or sweats. Denies recent illness. EENT: Denies eye, ear, throat, or mouth pain or symptoms. Denies nasal or sinus congestion or discharge. Denies throat, tongue, or mouth swelling or difficulty swallowing. CARDIOVASCULAR: Denies chest pain. Denies palpitations or racing or irregular heart beat. Denies ankle edema. RESPIRATORY: Denies cough, cold, or chest congestion. Denies shortness of breath, difficulty breathing, or wheezing. GASTROINTESTINAL: Denies abdominal pain or distention. Denies nausea, vomiting , or diarrhea. Denies blood in vomitus, stools, or per rectum. Denies black, tarry stools. Denies constipation. GENITOURINARY: Denies difficulty urinating, painful urination, burning, frequency, blood in urine, or discharge. FEMALE GENITOURINARY: Denies vaginal bleeding, heavy or abnormal periods, irregular periods. Denies vaginal discharge or odor. MUSCULOSKELETAL: Denies back or neck pain or stiffness. Denies joint pain or swelling. SKIN: Denies rash, lesions or sores. HEMATOLOGIC : Denies easy bruising or bleeding. LYMPHATIC: Denies swollen, enlarged glands. NEUROLOGICAL: Denies confusion or altered mental status. Denies passing out or loss of consciousness. Denies dizziness or lightheadedness. Denies headache. Denies weakness or paralysis or loss of use of either side. Denies problems with gait or speech. Denies sensory loss, numbness, or tingling. Denies seizures. PSYCHIATRIC: Denies anxiety or stress. Denies depression, suicidal ideation, or homicidal ideation. ALL OTHER SYSTEMS REVIEWED AND NEGATIVE. Dictation was performed using [employer] recognition software PHYSICAL EXAMINATION: GENERAL: Well-appearing, well-nourished and in no acute distress. HEAD: Atraumatic, normocephalic. EYES: Pupils equal round and reactive to light, extraocular movements intact, conjunctiva are normal. ENT: Nares patent, oropharynx clear without exudates. Moist mucous membranes. NECK: Normal range of motion, supple without lymphadenopathy LUNGS: Breath sounds clear to auscultation bilaterally and equal. No wheezes rales or rhonchi. HEART: Regular rate and rhythm without murmurs ABDOMEN: Soft, nontender, nondistended abdomen. No guarding, no rebound. No masses appreciated. Female : deferred Musculoskeletal: Normal range of motion, no pitting or edema. No cyanosis. NEUROLOGICAL: Cranial nerves grossly intact. Normal speech, normal gait. Normal sensory, motor exams PSYCH: Normal mood, normal affect. Patient does become angry when speaking with the police SKIN: Warm, Dry, normal turgor, no rashes or lesions noted. Physical Exam - Vital signs Vitals: Temp Pulse Resp BP Pulse Ox 98.5 F 96 16 138/98 H 97 08/16/16 13:31 08/16/16 13:31 08/16/16 13:31 08/16/16 13:31 08/16/16 13:31 Course - Re-evaluation Re-evalutation: 08/16/16 16:08 Patient appears to be at her baseline paranoid schizophrenia. She was IVC but given that she is a normal harm to others or herself I do not believe is appropriate to keep her. Therefore at her request I will let the patient be discharged. She mental health has evaluated the patient and has given resources both at home and for outpatient After performing a Medical Screening Examination, I estimate there is LOW risk for ACUTE CORONARY SYNDROME, RESPIRATORY FAILURE, SEPSIS OR MENINGITIS, thus I consider the discharge disposition reasonable. The patient and I have discussed the diagnosis and risks, and we agree with discharging home with close follow- up. We also discussed returning to the Emergency Department immediately if new or worsening symptoms occur. We have discussed the symptoms which are most concerning (e.g., changing or worsening pain, trouble swallowing or breathing, neck stiffness, fever) that necessitate immediate return. - Vital Signs Vital signs: Temp Pulse Resp BP Pulse Ox 98.5 F 96 16 138/98 H 97 08/16/16 13:31 08/16/16 13:31 08/16/16 13:31 08/16/16 13:31 08/16/16 13:31 - Laboratory Result Diagrams: 08/16/16 14:43 08/16/16 14:43 Laboratory results interpreted by me: 08/16/16 08/16/16 14:05 14:43 AST 42 H Urine Ketones TRACE H Salicylates < 1.0 L Acetaminophen < 10 L Discharge - Discharge Clinical Impression: Paranoid schizophrenia Condition: Stable Disposition: HOME, SELF-CARE Additional Instructions: Please follow-up with the care plan provided to you by mental health team will return immediately if there are any other concerns
[2016-08-16 16:18] VITALS: BP 150/101
--- NOTE | 2016-08-16 18:35 | EKG REPORT ---
SEVERITY:- NORMAL ECG - SINUS RHYTHM : Confirmed by: Blayne Shirley MD 16-Aug-2016 18:35:07
== END 2016-08-16 16:18 | disposition home or self-care (01) ==
LOC: ER 12:23
DX: F20.0 Paranoid schizophrenia (principal)
CPT/HCPCS: 36415; 80053; 80307; 81001; 84703; 85025; 93005; 93010; 99285

== ENCOUNTER 2016-08-22 02:56 | Emergency (ER) | payer MEDICARE, MEDICAID ==
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
[2016-08-22 04:54] LABS: ABSOLUTE LYMPHOCYTES (AUTO) 1.7 10^3/uL (0.5-4.7); ABSOLUTE MONOCYTES (AUTO) 0.5 10^3/uL (0.1-1.4); ABSOLUTE NEUT (AUTO) 2.2 10^3/uL (1.7-8.2); BASOPHILS % (AUTO) 0.4 % (0-2); HEMATOCRIT 34.2 % (36.0-47.0); HEMOGLOBIN 11.3 g/dL (12.0-15.5); HGB HCT DIFFERENCE -0.3; LYMPHOCYTES % (AUTO) 38.4 % (13-45); MEAN CORPUSCULAR HGB CONC 33.1 g/dL (32.0-36.0); MEAN CORPUSCULAR VOLUME 91 fl (80-97); MONOCYTES % (AUTO) 11.7 % (3-13); RED BLOOD COUNT 3.78 10^6/uL (3.72-5.28); SEGMENTED NEUTROPHILS % (AUTO) 48.5 % (42-78); WHITE BLOOD COUNT 4.5 10^3/uL (4.0-10.5)
[2016-08-22 04:59] LABS: ALANINE AMINOTRANSFERASE 47 U/L (9-52); ALBUMIN 4.1 g/dL (3.5-5.0); ALKALINE PHOSPHATASE 61 U/L (38-126); ANION GAP 12 (5-19); ASPARTATE AMINO TRANSFERASE 96 U/L (14-36); BILIRUBIN,DIRECT 0.3 mg/dL (0.0-0.4); BLOOD UREA NITROGEN 14 mg/dL (7-20); CALCIUM 9.5 mg/dL (8.4-10.2); CARBON DIOXIDE 23 mmol/L (22-30); CHLORIDE 107 mmol/L (98-107); CREATININE RESULT 0.83 mg/dL (0.52-1.25); GLUCOSE 82 mg/dL (75-110)
[2016-08-22 05:00] LABS: ALCOHOL < 10 mg/dL (NONE DETECTED)
[2016-08-22] MEDS ORDERED: ZIPRASIDONE MESYLATE INJ/PF 20 MG SDV IM ONE (07:13)
--- NOTE | 2016-08-22 09:01 | EKG REPORT ---
SEVERITY:- NORMAL ECG - SINUS RHYTHM : Confirmed by: Blayne Shirley MD 22-Aug-2016 09:00:11
--- NOTE | 2016-08-22 13:09 | PSYCHOLOGICAL NOTE ---
Psych Note - Psych Note Psych Note: Patient is a 41 year old female who presents under IVC, petitioned by mobile ornamental ironworkerRos with [facility] stating she is psychotic, medication noncompliant with her medications, and perseverative on evil spirits. Patient was reportedly found after she left the home, with mud all over her legs and no shoes, and disoriented. Patient today states she is fine and would like to go home. Patient states she is here because of anxiety and needs her Vistaril and Cogentin. Patient states she does at times hear voices but is not hearing them right now. Patient is accompanied by her mother who is bedside. Patient has continued to state she does not need to use the restroom and refuses to provide a urine sample. Patient did provide a urine sample earlier today however it was knocked into the toilet at which time she attempted to scooped out the urine. Patient was redirected and easily return to her room. Patient's mother, Valentin Mendoza states: The patient has been getting progressively worse. She states for around the past 3 or so months she has been deteriorating, repeatedly thinks people are breaking into her home and in one month placed 35 calls to 911. She states last week alone she called 911 17 times to report an intruder. Mother states previously, the patient would come to her home feel safe and stay; however, recently will come in walk around engaged in minimal conversation and then leave without notification. Mother states she has always maintained contact, but recently only for hours without any type of communication. Mother states Tuesday patient throughout all of her body wash food and drinks because there were evil spirits. Mother states she has not bathed or eaten. Mother states Tuesday was when he left without notification and later returned covered in mud up to her knees, in her pajamas, with no jacket and no shoes. Mother states she feels as though the patient has lost the ability to care for herself. She states when she is on her medications she is able to function independently. Unspecified schizophrenia and related psychotic disorder R/O Schizoeffective, Bipolar Type Patient is alert and oriented to name. Mood is euphoric with congruent affect. Patient denies suicidal/homicidal ideations. Patient is observed responding to internal stimuli. Delusions were noted. Thought processes were guarded. Conversational speech was singsong the area and intellectual abilities were estimated within average range. Attention and focus were poor. Insight, judgment, impulse control were poor. Patient is recommended to continue under IVC and seek 24-hour inpatient commitment. Note patient was seen in this department and evaluated by this clinician last week. Her clinical presentation has drastically changed in patient is now considered a danger to herself. Patient presents after exercising poor judgment and decision-making and possibly risking her own safety. Patient is delusional the individuals are breaking into her home despite numerous attempts at redirection by MARCO A and mother. Patient's insight into her mental illness is poor placing her at risk for further incident. Noted from last week's evaluation, patient in the past has engaged in ACT services. Also noted from last week's evaluation numerous pill bottles suggested medication noncompliance 3 or so months. As well as sample packets of an antipsychotic provided to her by her psychiatric provider. Insulted with Dr. Cruz in regards to the care and management of this patient.
[2016-08-22] MEDS ORDERED: OLANZAPINE INJ/PF 10 MG SDV IM ONE (14:01)
[2016-08-22] MEDS ORDERED: BENZTROPINE MESYLATE INJ 2 MG/2 ML AMPULE IM SCH ×2 (14:15→18:00)
[2016-08-22 17:49] LABS: APPEARANCE,URINE SLIGHTLY-CLOUDY; BILIRUBIN,URINE NEGATIVE (NEGATIVE); GLUCOSE, URINE NEGATIVE (NEGATIVE); KETONES,URINE 20 mg/dL (NEGATIVE); LEUKOCYTE ESTERASE,URINE NEGATIVE (NEGATIVE); NITRITE,URINE NEGATIVE (NEGATIVE); PROTEIN,URINE NEGATIVE (NEGATIVE); URINE SPECIFIC GRAVITY 1.021; UROBILINOGEN,URINE NEGATIVE mg/dL (<2.0)
[2016-08-22] MEDS ORDERED: OLANZAPINE INJ/PF 10 MG SDV IM SCH (18:00)
[2016-08-22 18:04] LABS: URINE BARBITURATES SCREEN NEGATIVE; URINE METHADONE SCREEN NEGATIVE; URINE OPIATES LOW NEGATIVE; URINE PHENCYCLIDINE SCREEN NEGATIVE
[2016-08-22] MEDS: OLANZAPINE INJ/PF 10 MG SDV IM SCH (19:01)
[2016-08-23] MEDS ORDERED: HYDROXYZINE PAMOATE 50 MG CAPSULE PO ONE (10:02)
[2016-08-23] MEDS: OLANZAPINE INJ/PF 10 MG SDV IM SCH (12:30)
--- NOTE | 2016-08-23 17:37 | ER Document Report ---
Doctor's Note Notes: 08/23/16 17:35 Rounds: Chart reviewed and patient interviewed. Vital signs have all been normal. Lab studies have also been normal. Patient appears to be medically stable for transfer or discharge. Patient has been evaluated by mental health feels that the patient should be transferred for inpatient care. She is awaiting transport to [facility]. Landon Garrido M.D.
[2016-08-23] MEDS ORDERED: BENZTROPINE MESYLATE 1 MG TABLET PO ONE (19:30)
[2016-08-23] MEDS ORDERED: OLANZAPINE 5 MG TABLET PO ONE (19:30)
[2016-08-23 19:40] VITALS: BP 141/97
== END 2016-08-23 19:15 ==
LOC: ER 02:56
DX: F20.9 Schizophrenia, unspecified (principal); T50.906A Underdosing of unspecified drugs, medicaments and biological substances, initial encounter; Z91.128 Patient's intentional underdosing of medication regimen for other reason; Z91.14 Patient's other noncompliance with medication regimen; Z75.1 Person awaiting admission to adequate facility elsewhere
CPT/HCPCS: 93005; 99285; 96372; 36415; 80307 ×4; 85025; 80053; 81001; 93010; A9270 ×3; J0515

== ENCOUNTER 2016-09-16 15:01 | Observation (INO) | payer MEDICARE, MEDICAID ==
--- NOTE | 2016-09-16 17:39 | ER Document Report ---
ED Medical Screen (RME) - General Chief Complaint: Abscess Stated Complaint: ABSCESS Notes: 41-year-old female patient reports painful abscesses to the right buttock started about 3 weeks ago, at least one of them is draining. She has had this problem before and had to have it drained but is been quite some time. I have greeted and performed a rapid initial assessment of this patient. A comprehensive ED assessment and evaluation of the patient, analysis of test results and completion of the medical decision making process will be conducted by additional ED providers. TRAVEL OUTSIDE OF THE [place] IN LAST 30 DAYS: No - Related Data Allergies/Adverse Reactions: iodine [Iodine] Allergy (Verified 09/16/16 17:31) Past Medical History Renal/ Medical History: Denies: Hx Peritoneal Dialysis Psychiatric Medical History: Reports: Hx Anxiety, Hx Bipolar Disorder, Hx Schizophrenia Past Surgical History: Reports: Hx Genitourinary Surgery, Hx Oral Surgery - Immunizations Hx Diphtheria, Pertussis, Tetanus Vaccination: Yes Physical Exam - Vital signs Vitals: Temp Pulse Resp BP Pulse Ox 99 F 107 H 16 150/82 H 99 09/16/16 15:39 09/16/16 15:39 09/16/16 15:39 09/16/16 15:39 09/16/16 15:39 Course - Vital Signs Vital signs: Temp Pulse Resp BP Pulse Ox 99 F 107 H 16 150/82 H 99 09/16/16 15:39 09/16/16 15:39 09/16/16 15:39 09/16/16 15:39 09/16/16 15:39
--- NOTE | 2016-09-16 20:40 | ER Document Report ---
ED Skin Rash/Insect Bite/Abscs - General Chief Complaint: Abscess Stated Complaint: ABSCESS Time seen by provider: 20:35 Notes: Patient is a 41-year-old female that comes emergency department for chief complaint of an abscess in the inner left buttock area, she states this was drained about 2 weeks ago at [facility] with an incision, she states that the incision has begun draining more and more pus in the area has become more tender. She states she is taking baths multiple times a day to try to clean this out. She states a few days ago she felt like she had a fever, denies any today, denies diabetes. Patient has a history of schizophrenia, she states she was admitted to to [facility] for this after she went began hearing voices, she states that she is doing fine today and she is not here for psychiatric evaluation. TRAVEL OUTSIDE OF THE [place] IN LAST 30 DAYS: No - Related Data Allergies/Adverse Reactions: iodine [Iodine] Allergy (Verified 09/16/16 17:31) Past Medical History - General Information source: Patient - Social History Smoking Status: Never Smoker Frequency of alcohol use: None Drug Abuse: None Lives with: Family Family History: Reviewed & Not Pertinent Patient has suicidal ideation: No Patient has homicidal ideation: No Renal/ Medical History: Denies: Hx Peritoneal Dialysis Psychiatric Medical History: Reports: Hx Anxiety, Hx Bipolar Disorder, Hx Schizophrenia Past Surgical History: Reports: Hx Genitourinary Surgery, Hx Oral Surgery - Immunizations Hx Diphtheria, Pertussis, Tetanus Vaccination: Yes Review of Systems - Review of Systems Constitutional: See HPI EENT: No symptoms reported Cardiovascular: No symptoms reported Respiratory: No symptoms reported Gastrointestinal: No symptoms reported Genitourinary: No symptoms reported Female Genitourinary: No symptoms reported Musculoskeletal: No symptoms reported Skin: See HPI Hematologic/Lymphatic: No symptoms reported Neurological/Psychological: No symptoms reported Physical Exam - Vital signs Vitals: Temp Pulse Resp BP Pulse Ox 99 F 107 H 16 150/82 H 99 09/16/16 15:39 09/16/16 15:39 09/16/16 15:39 09/16/16 15:39 09/16/16 15:39 Interpretation: Normal - General General appearance: Appears well In distress: None - no signs of distress although patient is lying on her side to avoid lying on the buttock - HEENT Head: Normocephalic, Atraumatic Eyes: Normal Conjunctiva: Normal Extraocular movements intact: Yes Eyelashes: Normal Pupils: PERRL Mouth/Lips: Normal Mucous membranes: Normal Pharynx: Normal Neck: Normal - Respiratory Respiratory status: No respiratory distress Chest status: Nontender Breath sounds: Normal. No: Decreased air movement, Wheezing Chest palpation: Normal - Cardiovascular Rhythm: Regular, Tachycardia Heart sounds: Normal auscultation, S1 appreciated, S2 appreciated Murmur: No - Abdominal Inspection: Normal Distension: No distension Bowel sounds: Normal Tenderness: Nontender Organomegaly: No organomegaly - Back Back: Normal, Nontender. No: Tender - Extremities General upper extremity: Normal inspection, Nontender, Normal color, Normal ROM , Normal temperature General lower extremity: Normal inspection, Nontender, Normal color, Normal ROM , Normal temperature, Normal weight bearing. No: Britney's sign - Neurological Neuro grossly intact: Yes Cognition: Normal Orientation: AAOx4 Benny Coma Scale Eye Opening: Spontaneous Benny Coma Scale Verbal: Oriented Benny Coma Scale Motor: Obeys Commands Cool Coma Scale Total: 15 Speech: Normal Motor strength normal: LUE, RUE, LLE, RLE Sensory: Normal - Psychological Associated symptoms: Other - occassional delayed responses, however she is oriented and cooperative. not responding to internal stimuli. Patient is calm - Skin Skin Temperature: Warm Skin Moisture: Dry Skin Color: Normal Location of irregularity: Other - Left inner buttock with a 3 cm vertical old incision which is very open with current pouring from the opening, induration around the incision tracking near the rectum but not including the rectum, also induration tracking down toward the perineum almost to the labia. Course - Re-evaluation Re-evalutation: Patient has an area in the medial left buttock which appears to be a nonhealing wound persistent purulent drainage which is continuous on my examinations. There is induration extending down the buttock towards the perineum and almost to the labia, there does not appear to be involvement of the perirectal area directly. Patient is afebrile, denies fever today, patient does not have diabetes. CBC does not show leukocytosis. Called and spoke with Dr. Willis, he recommends a CT of the abdomen and pelvis without contrast to assess for 09/17/16 CT showing cellulitis versus phlegmon in the left medial buttock but no discrete abscess is visualized. Called and spoke with Dr. Willis again, discussed imaging, he states he will come see the patient. Patient given a dose of vancomycin. Tachycardia has resolved. Dr. Willis evaluated patient at bedside, abscess is still profusely draining, area of induration is fairly extensive, he will admit the patient for planned operating room procedure for drainage in the morning. Patient states she is in full agreement with this plan. - Vital Signs Vital signs: Temp Pulse Resp BP Pulse Ox 98.5 F 85 16 132/61 H 99 09/17/16 01:03 09/17/16 01:03 09/17/16 01:03 09/17/16 01:03 09/17/16 01:03 - Laboratory Result Diagrams: 09/16/16 21:52 09/16/16 21:52 Laboratory results interpreted by me: 09/16/16 09/16/16 21:52 21:52 RBC 3.50 L Hgb 10.2 L Hct 30.8 L Glucose 74 L Discharge - Discharge Clinical Impression: Left buttock abscess Condition: Stable Disposition: ADMITTED INPATIENT Admitting Provider: Surgicalist Unit Admitted: Surgical Floor
[2016-09-16] MEDS ORDERED: HALOPERIDOL LACTATE INJ 5 MG/1 ML VIAL IM ONE (21:05)
[2016-09-16 22:03] LABS: ABSOLUTE BASOPHILS # (AUTO) 0.1 10^3/uL (0.0-0.2); ABSOLUTE LYMPHOCYTES (AUTO) 1.9 10^3/uL (0.5-4.7); ABSOLUTE MONOCYTES (AUTO) 0.9 10^3/uL (0.1-1.4); ABSOLUTE NEUT (AUTO) 4.8 10^3/uL (1.7-8.2); BASOPHILS % (AUTO) 0.7 % (0-2); EOSINOPHILS % (AUTO) 0.5 % (0-6); HEMATOCRIT 30.8 % (36.0-47.0); HEMOGLOBIN 10.2 g/dL (12.0-15.5); HGB HCT DIFFERENCE -0.2; MEAN CORPUSCULAR HEMOGLOBIN 29.3 pg (27.0-33.4); MEAN CORPUSCULAR HGB CONC 33.2 g/dL (32.0-36.0); MEAN CORPUSCULAR VOLUME 88 fl (80-97); MONOCYTES % (AUTO) 11.1 % (3-13); RED CELL DISTRIBUTION WIDTH 13.4 % (11.5-14.0); SEGMENTED NEUTROPHILS % (AUTO) 62.7 % (42-78); WHITE BLOOD COUNT 7.7 10^3/uL (4.0-10.5)
[2016-09-16 22:17] LABS: ANION GAP 14 (5-19); BLOOD UREA NITROGEN 15 mg/dL (7-20); CALCIUM 9.9 mg/dL (8.4-10.2); CARBON DIOXIDE 24 mmol/L (22-30); CHLORIDE 103 mmol/L (98-107); CREATININE RESULT 0.77 mg/dL (0.52-1.25); GLUCOSE 74 mg/dL (75-110); POTASSIUM 4.2 mmol/L (3.6-5.0)
[2016-09-16] MEDS ORDERED: FAMOTIDINE INJ/PF 20 MG/2 ML SDV IV ONE (23:18)
[2016-09-16] MEDS ORDERED: METHYLPREDNISOLONE INJ 125 MG/2 ML SDV IV ONE (23:18)
[2016-09-16] MEDS ORDERED: DIPHENHYDRAMINE HCL 50 MG/ML VIAL IV ONE (23:18)
[2016-09-17] MEDS ORDERED: VANCOMYCIN HCL INJ 1000 MG VIAL IV ONE (00:33)
[2016-09-17] MEDS ORDERED: NORMAL SALINE 1000 ML 1,000 ML IV PRN (01:13)
--- NOTE | 2016-09-17 01:13 | PDOC H&P ---
History of Present Illness History of Present Illness: RODERICK CRONIN is a 41 year old female who was noted with a left buttocks abscess at an outside hospital where she underwent incision and drainage about couple weeks ago. Patient has had the persistent drainage possible fever and continued the pain in this region. Uncertain whether she has increased pain with bowel movement and this region. No abdominal pain. Patient has the schizophrenia and she has had involuntary commitments in the past but she had been recently cleared for discharge. She takes care of herself at home. Past Medical History Cardiac Medical History: Reports: None Pulmonary Medical History: Reports: None Endocrine Medical History: Reports: None Psychiatric Medical History: Reports: Bipolar Disorder Past Surgical History Past Surgical History: Reports: Other - Ectopic in the past. No recent [employer] surgeries. Social History Lives with: Family Smoking Status: Current Some Day Smoker Frequency of Alcohol Use: Rare Drugs: None Family History Family History: Reviewed & Not Pertinent Parental Family History Reviewed: No Children Family History Reviewed: No Sibling(s) Family History Reviewed.: No Medication/Allergy Home Medications: Benztropine Mesylate [Cogentin 1 mg Tablet] 1 mg PO BID 08/23/16 Buspirone HCl [Buspar 30 mg Tablet] 30 mg PO BID 08/23/16 Cariprazine Hydrochloride [Vraylar] 6 mg PO QHS 08/23/16 Allergies/Adverse Reactions: iodine [Iodine] Allergy (Verified 09/16/16 17:31) Physical Exam Vital Signs: Temp Pulse Resp BP Pulse Ox 99 F 107 H 16 150/82 H 99 09/16/16 15:39 09/16/16 15:39 09/16/16 15:39 09/16/16 15:39 09/16/16 15:39 Intake & Output 09/15/16 09/16/16 09/17/16 06:59 06:59 06:59 Weight 86 kg General appearance: PRESENT: no acute distress, cooperative Neck exam: PRESENT: other - Supple with no tenderness Respiratory exam: PRESENT: chest wall tenderness Cardiovascular exam: PRESENT: RRR GI/Abdominal exam: PRESENT: other - Soft, nondistended, nontender to palpation. Rectal exam: PRESENT: other - Normal tone with no pain with the help patient. Induration however felt on the left side. No drainage from the anal canal.. Musculoskeletal exam: PRESENT: other - Left buttocks medially several centimeters away from the anus open wound with copious amount of purulent drainage. Induration extending from this the wound toward the perineum. No crepitus. Unable to probe the wound deep to get into the abscess cavity however. Neurological exam: PRESENT: alert, awake, oriented to person, oriented to place , oriented to time, oriented to situation Psychiatric exam: PRESENT: flat affect Results Laboratory Results: 09/16/16 21:52 09/16/16 21:52 09/16/16 09/16/16 09/16/16 21:52 21:52 21:52 WBC 7.7 RBC 3.50 L Hgb 10.2 L Hct 30.8 L MCV 88 MCH 29.3 MCHC 33.2 RDW 13.4 Plt Count 446 Seg Neutrophils % 62.7 Lymphocytes % 25.0 Monocytes % 11.1 Eosinophils % 0.5 Basophils % 0.7 Absolute Neutrophils 4.8 Absolute Lymphocytes 1.9 Absolute Monocytes 0.9 Absolute Eosinophils 0.0 Absolute Basophils 0.1 Sodium 141.0 Potassium 4.2 Chloride 103 Carbon Dioxide 24 Anion Gap 14 BUN 15 Creatinine 0.77 Est GFR ( Amer) > 60 Est GFR (Non-Af Amer) > 60 Glucose 74 L Calcium 9.9 Serum HCG, Qual NEGATIVE Impressions: Abdomen/Pelvis CT 09/16/16 22:19 IMPRESSION: Moderate cellulitis/phlegmon pattern of the left medial buttock. No discrete abscess at this time. Assessment & Plan - Diagnosis (1) Left buttock abscess Is this a current diagnosis for this admission?: YesPlan: CT scan does not demonstrate evidence of a perirectal nor ischiorectal abscess. It appears to be an isolated the buttocks abscess extending toward the perineum. With this copious amount of purulent drainage that has been persistent for couple weeks I do not think it is adequately opened. Patient would benefit from wound exploration with better drainage of her apparent deep- seated abscess. I have explained to the patient the nature of the surgery and the risk and benefits including risk of bleeding and infection and prolonged wound healing. Patient is alert and oriented and comprehends her current medical problem and plans to treat this problem. And she is a not actively psychotic despite her history of bipolar disease and schizophrenia. We'll plan to admit the patient the tonight and place her on IV antibiotics with plans for surgery in the morning.
[2016-09-17] MEDS ORDERED: ERTAPENEM SODIUM INJ 1 GM VIAL IV ONE (01:30)
[2016-09-17] MEDS ORDERED: FENTANYL CITRATE INJ/PF 100 MCG/2 ML AMPUL ONE (10:36)
[2016-09-17] MEDS ORDERED: PROPOFOL INJ 200 MG/20 ML VIAL IV ONE (10:36)
[2016-09-17] MEDS ORDERED: MIDAZOLAM 2 MG/2 ML INJ ONE (10:36)
[2016-09-17] MEDS ORDERED: MEPERIDINE HCL/PF INJ 25 MG/1 ML DISP.SYRIN IV PRN (11:46)
[2016-09-17] MEDS ORDERED: PROMETHAZINE HCL INJ 25 MG/1 ML VIAL IV PRN ×2 (11:46)
[2016-09-17] MEDS ORDERED: DIPHENHYDRAMINE HCL 50 MG/ML VIAL IV PRN (11:46)
[2016-09-17] MEDS ORDERED: FENTANYL CITRATE INJ/PF 100 MCG/2 ML AMPUL IV PRN (11:46)
[2016-09-17] MEDS ORDERED: BUPIVACAINE HCL 0.5 % INJ/PF 30 ML SDV ONE (12:14)
[2016-09-17] MEDS ORDERED: LIDOCAINE 0.5% INJ-PF (5 MG/ML) 50 ML SDV ONE (12:15)
--- NOTE | 2016-09-17 12:17 | Operative Report ---
Operative Report DATE OF SURGERY: 09/17/16 PREOPERATIVE DIAGNOSIS: Persisting posterior lateral buttock abscess POSTOPERATIVE DIAGNOSIS: Same; suspicious for MRSA. Posterior perianal skin tag. Internal/external hemorrhoids OPERATION: Exam under anesthesia, anoscopy. Excisional debridement of skin and subcutaneous tissue, evacuation of left posterior lateral anal rectal abscess cavity, breakup of loculations and packing. Excision of small posterior perianal fibrotic tag SURGEON: EDUARDO CONNOR ANESTHESIA: GA TISSUE REMOVED OR ALTERED: Portion of skin and subcutaneous tissue and chunks COMPLICATIONS: None ESTIMATED BLOOD LOSS: 25 mL INTRAOPERATIVE FINDINGS: See below PROCEDURE: Patient was taken to holding her to the operating room where general anesthesia was induced. Patient placed in the right lateral decubitus position, beanbag support, buttock taped widely. Surgical blade and surgical timeout conducted Findings significant for a intended oxana-anal incision draining pus. The incision was extended anal canal in a more radial direction. Thick subcutaneous issue was broken up with Denise clamp. More pus pockets were identified. The configuration was most consistent with MRSA type soft tissue infection. Several small Chunks of subcutaneous tissue were actually excised with electrocautery. Masses of tissue amounted to approximately 1 g. The open excision site was approximately a 5 cm in length, and the subcutaneous pocket extended a distance of approximately 12 cm. Of note there was some violation of the external sphincter from the infection. Anal examination revealed a posterior fibrotic tag in the perianal skin which was excised with 15 blade. In addition there were external/internal hemorrhoids. The rectal canal was easily dilated up and a bullet anoscope inserted. Visualization of the canal was achieved with some degree of because of the patient's lateral position, and residual stool coming into the field. Nonetheless I could appreciate the anal crypts but could not see an internal opening consistent with fistula in anal. Series of probes in attempt to identify a communication with the anal canal and none could be demonstrated. Also Injected some peroxide into the abscess cavity and no communication with the anal canal could be demonstrated. At this point felt the operation was complete. Abscess cavity packed with half a bottle of 1 inch iodoform packing. Hemostasis was satisfactory. It was placed in anal canal. 4 x 4's applied. Patient tolerated the procedure well, was extubated and then taken to recovery in stable condition.
[2016-09-17] MEDS ORDERED: ACETAMINOPHEN 100 ML IV ONE (12:36)
[2016-09-17] MEDS ORDERED: KETOROLAC TROMETHAMINE INJ/PF 30 MG/1 ML SDV ONE (12:36)
[2016-09-17] MEDS: HYDROMORPHONE HCL INJ/PF 2 MG/ML AMPULE ONE ×2 (13:03→13:08)
--- NOTE | 2016-09-17 14:07 | PSYCHOLOGICAL NOTE ---
Psych Note - Psych Note Psych Note: Received consult on patient because of concern that patient was "recently under IVC." Patient was evaluated on 08/22/16 and [facility]. Records indicate patient's psychological baseline (dating back to 2014) includes somatic delusions of being , and auditory hallucinations. Reason for ordered behavioral health consult does not meet threshold for behavioral health evaluation. While patient has a history of IVC, and inpatient psychiatric hospitalization within the past 30 days, a concern for harm to self or others should be an active concern despite past reason for admission to [facility].
[2016-09-17] MEDS ORDERED: ONDANSETRON HCL INJ/PF 4 MG/2 ML SDV ONE (14:10)
[2016-09-17] MEDS ORDERED: GLYCOPYRROLATE INJ 0.4 MG/2 ML VIAL ONE (14:10)
[2016-09-17] MEDS ORDERED: SUCCINYLCHOLINE CHLORIDE INJ 200 MG/10 ML VIAL ONE (14:10)
[2016-09-17] MEDS ORDERED: DEXAMETHASONE SOD PHOSPHATE INJ 4 MG/1 ML VIAL ONE (14:10)
[2016-09-17] MEDS ORDERED: LIDOCAINE 2% INJ-PF (20 MG/ML) 10 ML AMPUL ONE (14:10)
[2016-09-17] MEDS ORDERED: IBUPROFEN 600 MG TABLET PO PRN (14:50)
[2016-09-17] MEDS ORDERED: BUSPIRONE HCL 10 MG TABLET PO ONE (16:30)
[2016-09-17] MEDS ORDERED: BUSPIRONE HCL 10 MG TABLET PO SCH (18:00)
[2016-09-17] MEDS: BUSPIRONE HCL 10 MG TABLET PO SCH (21:43)
[2016-09-17] MEDS ORDERED: CARIPRAZINE HYDROCHLORIDE 6 MG PO SCH (22:00)
[2016-09-17] MEDS ORDERED: BENZTROPINE MESYLATE 1 MG TABLET PO SCH (22:00)
[2016-09-17] MEDS ORDERED: METRONIDAZOLE 500 MG/NS RTU 100 ML IV ONE (23:00)
[2016-09-18] MEDS ORDERED: KETOROLAC TROMETHAMINE 10 MG TABLET ONE (00:46)
[2016-09-18] MEDS ORDERED: KETOROLAC TROMETHAMINE 10 MG TABLET PO PRN (04:00)
[2016-09-18] MEDS: BUSPIRONE HCL 10 MG TABLET PO SCH (05:50)
[2016-09-18] MEDS ORDERED: METRONIDAZOLE 500 MG/NS RTU 100 ML IV SCH (06:00)
[2016-09-18 09:24] VITALS: BP 145/82
[2016-09-18] MEDS ORDERED: HALOPERIDOL 5 MG TABLET PO SCH (10:00)
--- NOTE | 2016-09-18 10:13 | DISCHARGE SUMMARY E ---
Discharge Summary NAME: RODERICK CRONIN : 1975 AGE: 41Y ADMITTED: 09/17/2016 DISCHARGED: 09/18/2016 ADMITTING DIAGNOSIS: Perirectal abscess. DISCHARGE DIAGNOSIS: Perirectal abscess, status post incision and drainage done yesterday by Dr. Baltazar. REASON FOR ADMISSION AND HOSPITAL COURSE: The patient has history of perirectal abscess drained somewhere else, maybe Urgent Care, presented to the emergency room with still increasing pain. On evaluation, she had an undrained residual abscess that was drained in the operating room under anesthesia. This morning the pain is minimal. On examination, the patient is comfortable, afebrile, tolerating diet. Abdominal examination soft. Abdomen nontender. In the perirectal area, the abscess in the Left perirectal area, packing was removed and wound examined. It is clean. No more drainage. No cellulitis around it. No purulence. Wound was irrigated and dressing applied. Dressing instructions were given to the patient. Sitz bath twice daily. Pain medication prescription given. DISCHARGE MEDICATIONS: Bapchule for the pain and stool softeners given. Also gave her a prescription for Augmentin antibiotic for a week. DISCHARGE INSTRUCTIONS: Patient was instructed to report to the emergency room in case of generalized fever, increasing pain. I asked her to followup in the Surgical Clinic in 1-2 weeks. At the time of discharge, patient doing very well. Total of 35 minutes of discharge for counseling, coordinating for the care, and also for perirectal wound care. DICTATING PHYSICIAN: LENKA NICK M.D. [id number] Y#: [id number] ID: [id number] JOB#: [id number] ACCT: [id number] cc:BRENDAN, LENKA FERREIRA MD, M.D, M.D., IVAN PA >
== END 2016-09-18 11:00 | disposition home or self-care (01) ==
LOC: ER 15:01 → EH 09-17 01:13 → INTOOBSV 09-17 01:28 → UNDOADMOB 09-17 01:28 → 4N 09-17 03:10
PROVIDERS: ATTEND Surgery
PROC: 0DBQXZZ Excision of Anus, External Approach (ICD-10-PCS; 2016-09-17)
PROC: 0J990ZX Drainage of Buttock Subcutaneous Tissue and Fascia, Open Approach, Diagnostic (ICD-10-PCS; principal; 2016-09-17 10:45)
DX: K61.1 Rectal abscess (principal); K64.8 Other hemorrhoids; K64.4 Residual hemorrhoidal skin tags; F17.200 Nicotine dependence, unspecified, uncomplicated; F20.9 Schizophrenia, unspecified; Z98.890 Other specified postprocedural states
CPT/HCPCS: 46050; 46220; 99285; 96375; 96365; 36415; 87070; 87205; 84703; 85025; 87075; 87077; 80048; 87186; 74177; G0378 ×3; J2250; A9270 ×6; J1100; J1200; J3010; J1335; J3490 ×2; J2930; J1885; J1170; J0330; J2405; J7030; J2704; J3370; S0028; J0131; 300

== ENCOUNTER 2016-09-20 15:40 | Emergency (ER) | payer MEDICARE, MEDICAID ==
--- NOTE | 2016-09-20 17:37 | ER Document Report ---
ED Medical Screen (RME) - General Chief Complaint: Abdominal Pain Stated Complaint: ABDOMINAL PAIN Mode of Arrival: Medic Information source: Patient TRAVEL OUTSIDE OF THE [place] IN LAST 30 DAYS: No - Related Data Allergies/Adverse Reactions: iodine [Iodine] Allergy (Verified 09/16/16 17:31) Past Medical History Renal/ Medical History: Denies: Hx Peritoneal Dialysis Psychiatric Medical History: Reports: Hx Anxiety, Hx Bipolar Disorder, Hx Schizophrenia Past Surgical History: Reports: Hx Genitourinary Surgery, Hx Oral Surgery, Other - Ectopic in the past. No recent [employer]EL[employer] surgeries. - Immunizations Hx Diphtheria, Pertussis, Tetanus Vaccination: Yes
--- NOTE | 2016-09-20 17:39 | ER Document Report ---
ED General - General Chief Complaint: Abdominal Pain Stated Complaint: ABDOMINAL PAIN Mode of Arrival: Medic Information source: Patient Notes: 41-year-old female presents with complaints of sudden popping sensation in bilateral flanks while she was praying just prior to arrival. Patient denies any urinary complaints denies any other abdominal pain. Denies any fevers or chills TRAVEL OUTSIDE OF THE [place] IN LAST 30 DAYS: No - HPI Onset: Just prior to arrival Onset/Duration: Sudden Quality of pain: Sharp Severity: None Pain Level: Denies - Notes pain has since resolved Associated symptoms: None Exacerbated by: Denies Relieved by: Denies Similar symptoms previously: No Recently seen / treated by doctor: No - Related Data Allergies/Adverse Reactions: iodine [Iodine] Allergy (Verified 09/16/16 17:31) Past Medical History - Social History Smoking Status: Never Smoker Cigarette use (# per day): No Chew tobacco use (# tins/day): No Smoking Education Provided: No Family History: Reviewed & Not Pertinent Renal/ Medical History: Denies: Hx Peritoneal Dialysis Psychiatric Medical History: Reports: Hx Anxiety, Hx Bipolar Disorder, Hx Schizophrenia Past Surgical History: Reports: Hx Genitourinary Surgery, Hx Oral Surgery, Other - Ectopic in the past. 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 - Immunizations Hx Diphtheria, Pertussis, Tetanus Vaccination: Yes Review of Systems - Review of Systems Notes: REVIEW OF SYSTEMS: CONSTITUTIONAL : Denies fever, chills, or sweats. Denies recent illness. EENT: Denies eye, ear, throat, or mouth pain or symptoms. Denies nasal or sinus congestion or discharge. Denies throat, tongue, or mouth swelling or difficulty swallowing. CARDIOVASCULAR: Denies chest pain. Denies palpitations or racing or irregular heart beat. Denies ankle edema. RESPIRATORY: Denies cough, cold, or chest congestion. Denies shortness of breath, difficulty breathing, or wheezing. GASTROINTESTINAL: Admits to bilateral flank pain GENITOURINARY: Denies difficulty urinating, painful urination, burning, frequency, blood in urine, or discharge. FEMALE GENITOURINARY: Denies vaginal bleeding, heavy or abnormal periods, irregular periods. Denies vaginal discharge or odor. MUSCULOSKELETAL: Denies back or neck pain or stiffness. Denies joint pain or swelling. SKIN: Denies rash, lesions or sores. HEMATOLOGIC : Denies easy bruising or bleeding. LYMPHATIC: Denies swollen, enlarged glands. NEUROLOGICAL: Denies confusion or altered mental status. Denies passing out or loss of consciousness. Denies dizziness or lightheadedness. Denies headache. Denies weakness or paralysis or loss of use of either side. Denies problems with gait or speech. Denies sensory loss, numbness, or tingling. Denies seizures. PSYCHIATRIC: Denies anxiety or stress. Denies depression, suicidal ideation, or homicidal ideation. ALL OTHER SYSTEMS REVIEWED AND NEGATIVE. Dictation was performed using [employer] voice recognition software PHYSICAL EXAMINATION: GENERAL: Well-appearing, well-nourished and in no acute distress. HEAD: Atraumatic, normocephalic. EYES: Pupils equal round and reactive to light, extraocular movements intact, conjunctiva are normal. ENT: Nares patent, oropharynx clear without exudates. Moist mucous membranes. NECK: Normal range of motion, supple without lymphadenopathy LUNGS: Breath sounds clear to auscultation bilaterally and equal. No wheezes rales or rhonchi. HEART: Regular rate and rhythm without murmurs ABDOMEN: Soft, nontender, nondistended abdomen. No guarding, no rebound. No masses appreciated. Female : deferred Musculoskeletal: Normal range of motion, no pitting or edema. No cyanosis. NEUROLOGICAL: Cranial nerves grossly intact. Normal speech, normal gait. Normal sensory, motor exams PSYCH: Normal mood, normal affect. SKIN: Warm, Dry, normal turgor, no rashes or lesions noted. Course - Re-evaluation Re-evalutation: 09/20/16 17:39 I have very low suspicion for any life-threatening issues, physical examination noted no significant abnormality, patient notes it no longer hurts. Lab work is pending none the less to rule out any life-threatening issues 09/20/16 19:44 Patient has walked out a total 5 times in the middle of her care, each time I have had to go outside to find the patient and bring her back This last time it appears patient has been stuck multiple times unsuccessful for blood she wishes to leave without any further testing. At her request I will discharge her with the understanding that this is not a complete evaluation After performing a Medical Screening Examination, I estimate there is LOW risk for ACUTE APPENDICITIS, BOWEL OBSTRUCTION, ACUTE CHOLECYSTITIS, PERFORATED DIVERTICULITIS, INCARCERATED HERNIA, PANCREATITIS, PELVIC INFLAMMATORY DISEASE, PERFORATED ULCER, ECTOPIC , or TUBO-OVARIAN ABSCESS, thus I consider the discharge disposition reasonable. Also, there is no evidence or peritonitis , sepsis, or toxicity. I have reevaluated this patient multiple times and no significant life threatening changes are noted. The patient and I have discussed the diagnosis and risks, and we agree with discharging home with close follow-up with the understanding that symptoms and presentations can change. We also discussed returning to the Emergency Department immediately if new or worsening symptoms occur. We have discussed the symptoms which are most concerning (e.g., bloody stool, fever, changing or worsening pain, vomiting) that necessitate immediate return. Discharge - Discharge Clinical Impression: Abdominal pain Qualifiers: Abdominal location: unspecified location Qualified Code(s): R10.9 - Unspecified abdominal pain Condition: Stable Disposition: HOME, SELF-CARE Instructions: Abdominal Pain ([facility]) Additional Instructions: Follow up with your physician tomorrow for further care or return to the ED IMMEDIATELY if symptoms worsen or new concerns occur. If you cannot afford to follow up with your primary care physician a list of low cost clinics have been provided at the end of your discharge papers as well.
[2016-09-20 21:42] LABS: APPEARANCE,URINE SLIGHTLY-CLOUDY; BILIRUBIN,URINE NEGATIVE (NEGATIVE); GLUCOSE, URINE NEGATIVE (NEGATIVE); KETONES,URINE TRACE mg/dL (NEGATIVE); LEUKOCYTE ESTERASE,URINE NEGATIVE (NEGATIVE); NITRITE,URINE NEGATIVE (NEGATIVE); PROTEIN,URINE NEGATIVE (NEGATIVE); URINE SPECIFIC GRAVITY 1.018; UROBILINOGEN,URINE NEGATIVE mg/dL (<2.0)
== END 2016-09-20 19:52 | disposition home or self-care (01) ==
LOC: ER 15:40
DX: R10.9 Unspecified abdominal pain (principal)
CPT/HCPCS: 81001; 81025; 99284

== ENCOUNTER 2016-09-25 03:42 | Emergency (ER) | payer MEDICARE, MEDICAID ==
[~2016-09-25 03:42] MED LIST: HALOPERIDOL DECANOATE INJ 100 MG/1 ML VIAL IM ONE
--- NOTE | 2016-09-25 08:05 | ER Document Report ---
ED General - General Chief Complaint: Anxiety Stated Complaint: BEHAVORIAL PROBLEMS Notes: Patient is a 41-year-old female who presents emergency Department with multiple complaints. Patient is on the chart department for history of schizophrenia and most recently a left perirectal abscess requiring surgical I&D. Patient's primary complaint today is evaluation of her abscess. States that she is having some associated pain but able to sit on her bottom, admits to mild drainage but otherwise denies any fevers, chills. She is due to follow up with surgeon Dr. Baltazar within the next week. Otherwise currently she is admitting to paranoia, auditory hallucinations. Patient is known history of schizophrenia but she states she has been compliant with her medications and she is due for a follow-up visit with [facility] this week but she is not aware of the date. Today she states that is receiving multiple phone calls from unknown numbers of people harassing her and that 2 men in [place] have been planning to kidnap her. She also states that one of the men that the trying to kidnap her with associated previously with the and she feels that he is using [employer] technology to get into her head. Patient lives alone, but states her mother lives within the area TRAVEL OUTSIDE OF THE [place] IN LAST 30 DAYS: No - Related Data Allergies/Adverse Reactions: iodine [Iodine] Allergy (Verified 09/16/16 17:31) Home Medications: Current Home Medications Amox Tr/Potassium Clavulanate [Augmentin 875-125 mg Tablet] 1 tab PO BID [History] Docusate Sodium [Colace 100 mg Capsule] 100 mg PO DAILY 09/25/16 [History] Zolpidem Tartrate [Ambien] 10 mg PO DAILY 09/25/16 [History] Past Medical History - Social History Smoking Status: Smoker,Current Status Unk Family History: Reviewed & Not Pertinent Patient has suicidal ideation: No Patient has homicidal ideation: No Renal/ Medical History: Denies: Hx Peritoneal Dialysis Psychiatric Medical History: Reports: Hx Anxiety, Hx Bipolar Disorder, Hx Schizophrenia Past Surgical History: Reports: Hx Genitourinary Surgery, Hx Oral Surgery, Other - Ectopic in the past. 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 - Immunizations Hx Diphtheria, Pertussis, Tetanus Vaccination: Yes Review of Systems - Review of Systems Constitutional: No symptoms reported Cardiovascular: No symptoms reported Respiratory: No symptoms reported Gastrointestinal: No symptoms reported Skin: See HPI Neurological/Psychological: Anxiety, Hallucinations. denies: Homicidal ideation , Suicidal ideation Physical Exam - Vital signs Vitals: Temp Pulse Resp BP Pulse Ox 98.6 F 87 18 116/71 100 09/25/16 03:51 09/25/16 03:51 09/25/16 03:51 09/25/16 03:51 09/25/16 03:51 - Notes Notes: PHYSICAL EXAM GENERAL: Alert, interacts well. HEAD: Normocephalic, atraumatic. EYES: Pupils equal, round, and reactive to light. Extraocular movements intact. ENT: Oral mucosa moist, tongue midline. NECK: Full range of motion. Supple. Trachea midline. LUNGS: Clear to auscultation bilaterally, no wheezes, rales, or rhonchi. No respiratory distress. HEART: Regular rate and rhythm. No murmurs, gallops, or rubs. ABDOMEN: Soft, nondistended, nontender. No guarding, rebound, or rigidity.. Bowel sounds present in all 4 quadrants. EXTREMITIES: Moves all 4 extremities spontaneously. No edema, radial and dorsalis pedis pulses 2/4 bilaterally. No cyanosis. NEUROLOGICAL: Alert and oriented x4. Normal speech. - Psychological Associated symptoms: Normal affect, Normal mood, Auditory hallucinations, Flight of ideas, Paranoid - Skin Skin Temperature: Warm Skin Moisture: Dry Skin Color: Normal Skin Turgor: Elastic Skin irregularity: Abscess - healing 5x5cm abscess with minimal urulent drainage in the left perineal area, nontender, with surrounding induration. Course - Re-evaluation Re-evalutation: 09/25/16 08:09 Patient is a 41-year-old female is well-known to the emergency department for previous mental health evaluations and most recently a surgical evaluation for the left. He rectal abscess. Postop day 7 from this procedure and healing well. No signs of infection or concerns for additional I&D. Patient has established follow-up with surgery. In regards to agents mental status, I have consulted mental health to come reevaluate her since she is well-known to the department to evaluate her paranoia. Please see psych note for their assessment Patient deemed capable for discharge, IM haldol given, instructed to f/u with [facility] this week - Vital Signs Vital signs: Temp Pulse Resp BP Pulse Ox 97.7 F 72 16 111/73 100 09/25/16 09:41 09/25/16 09:41 09/25/16 09:41 09/25/16 09:41 09/25/16 09:41 Discharge - Discharge Clinical Impression: Abscess, Anxiety Condition: Good Disposition: HOME, SELF-CARE Instructions: Anxiety ([facility]) Additional Instructions: You did receive a dose of Haldol Decanoate 100mg IM today Please follow-up with the surgeon as scheduled [facility] Referrals: ROCÍO FLORES MD [Primary Care Provider] - Follow up as needed
[2016-09-25 09:42] VITALS: BP 111/73
--- NOTE | 2016-09-25 13:09 | PSYCHOLOGICAL NOTE ---
Psych Note - Psych Note Psych Note: Patient is a 41-year-old female who presents emergency Department with multiple complaints. Patient is on the chart department for history of schizophrenia. Patient is currently admitting to paranoia; auditory hallucinations. Patient is known history of schizophrenia but she states she has been compliant with her medications and she is due for a follow-up visit with [facility] this week but she is not aware of the date. Today she states that is receiving multiple phone calls from unknown numbers of people harassing her and that 2 men in [place] have been planning to kidnap her. She also states that one of the men that the trying to kidnap her with associated previously with the and she feels that he is using technology to get into her head. This patient is known to this clinician and department. Patient states a cult is bothering are;"they are making me hear voices." She continued to disclose that she thinks they are using tactics to get into her head. Patient states she has been taking her medications [facility]. Patient is alert and orientated to person place time and circumstance. Mood is euthymic with congruent affect. Patient denies suicidal and homicidal ideation. Patient endorses current auditory hallucinations. It is noted the patient has some persistence somatic delusions; however today she is expressing mixed delusions of being controlled and persecutory. Thought process is linear however content is focused on delusions and pain from a recent abbess procedure. Conversational speech was within normal rate and prosody however in a low tone . Eye contact was fair. Intellectual abilities appear to be low average range. Attention and concentration are fair. Insight, judgment, impulse control are poor. 298.9 (F29) unspecified schizophrenia spectrum and other psychotic disorder per history provided by patient 296.80(F31.9) unspecified bipolar and related disorder per history provided by patient Impression\\plan: Patient does not meet IVC per [place] GS 122C. Hu patient is exhibiting some delusions and discloses auditory hallucinations that come and go , these appear to be baseline for her going back to 2014. Patient adamantly denies was suicidal ideation. Patient is psychiatrically cleared for discharge. Patient is recommended follow-up with home mental health provider [facility]. Dr. Cruz was consulted on Lolita management of this patient; attending physician is in agreement with recommendations and disposition.
== END 2016-09-25 14:45 | disposition home or self-care (01) ==
LOC: ER 03:42
DX: K61.1 Rectal abscess (principal); F41.9 Anxiety disorder, unspecified; Z79.899 Other long term (current) drug therapy; R44.0 Auditory hallucinations; F17.200 Nicotine dependence, unspecified, uncomplicated
CPT/HCPCS: 99283; 99284; 96372; 36415; 83690; 84703; 85025; 80053; 81001; J1631

== ENCOUNTER 2016-09-25 20:55 | Emergency (ER) | payer MEDICARE, MEDICAID ==
--- NOTE | 2016-09-26 01:54 | ER Document Report ---
ED GI/ - General Chief Complaint: Abdominal Pain Stated Complaint: ABDOMINAL PAIN Time seen by provider: 01:52 Mode of Arrival: Ambulatory Information source: Patient TRAVEL OUTSIDE OF THE [place] IN LAST 30 DAYS: No - HPI Patient complains to provider of: Abdominal pain Onset: This evening Timing/Duration: Sudden Quality of pain: Achy Severity at maximum: Mild Severity in ED: Mild Location: Epigastric Associated symptoms: Nausea Exacerbated by: Denies Relieved by: Denies Similar symptoms previously: Yes Recently seen / treated by doctor: Yes Notes: 09/26/16 01:53 Patient is a 41-year-old female who is well-known to this emergency room, who presents complaining of epigastric abdominal pain that started since she left the emergency room earlier in the day, she denies any fever or chills, no urinary symptoms, no vomiting or diarrhea, she does report nausea, immediately after my initial evaluation she asked if she could have something to eat, patient also apparently told nursing staff that her symptoms started after a "spirit jumped on me" - Related Data Allergies/Adverse Reactions: iodine [Iodine] Allergy (Verified 09/25/16 21:59) Past Medical History - General Information source: Patient - Social History Smoking Status: Unknown if Ever Smoked Family History: Reviewed & Not Pertinent Patient has suicidal ideation: No Patient has homicidal ideation: No Renal/ Medical History: Denies: Hx Peritoneal Dialysis Psychiatric Medical History: Reports: Hx Anxiety, Hx Bipolar Disorder, Hx Schizophrenia Past Surgical History: Reports: Hx Genitourinary Surgery, Hx Oral Surgery, Other - Ectopic in the past. 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 - Immunizations Hx Diphtheria, Pertussis, Tetanus Vaccination: Yes Review of Systems - Review of Systems Constitutional: No symptoms reported EENT: No symptoms reported Cardiovascular: No symptoms reported Respiratory: No symptoms reported Gastrointestinal: See HPI Genitourinary: No symptoms reported Female Genitourinary: No symptoms reported Musculoskeletal: No symptoms reported Skin: No symptoms reported Hematologic/Lymphatic: No symptoms reported Neurological/Psychological: No symptoms reported -: Yes All other systems reviewed and negative Physical Exam - Vital signs Vitals: Temp Pulse Resp BP Pulse Ox 98.7 F 91 16 131/74 H 100 09/25/16 21:59 09/25/16 21:59 09/25/16 21:59 09/25/16 21:59 09/25/16 21:59 Interpretation: Normal - General General appearance: Appears well, Alert - HEENT Head: Normocephalic, Atraumatic Eyes: Normal Pupils: PERRL - Respiratory Respiratory status: No respiratory distress Chest status: Nontender Breath sounds: Normal Chest palpation: Normal - Cardiovascular Rhythm: Regular Heart sounds: Normal auscultation Murmur: No - Abdominal Inspection: Normal Distension: No distension Bowel sounds: Normal Tenderness: Tender - Epigastric Organomegaly: No organomegaly - Back Back: Normal, Nontender - Extremities General upper extremity: Normal inspection, Nontender, Normal color, Normal ROM , Normal temperature General lower extremity: Normal inspection, Nontender, Normal color, Normal ROM , Normal temperature, Normal weight bearing. No: Britney's sign - Neurological Neuro grossly intact: Yes Cognition: Normal Orientation: AAOx4 [place] Coma Scale Eye Opening: Spontaneous [place] Coma Scale Verbal: Oriented [place] Coma Scale Motor: Obeys Commands [place] Coma Scale Total: 15 Speech: Normal Motor strength normal: LUE, RUE, LLE, RLE Sensory: Normal - Psychological Associated symptoms: Normal affect, Normal mood - Skin Skin Temperature: Warm Skin Moisture: Dry Skin Color: Normal Course - Re-evaluation Re-evalutation: 09/26/16 02:45 Patient has been sleeping comfortably on the stretcher with no complaints, lab findings are unremarkable, she will be discharged home with instructions for follow-up - Vital Signs Vital signs: Temp Pulse Resp BP Pulse Ox 97.7 F 75 18 131/83 H 100 09/26/16 02:06 09/26/16 02:06 09/26/16 02:06 09/26/16 02:06 09/26/16 02:06 - Laboratory Result Diagrams: 09/26/16 01:51 09/26/16 01:51 Laboratory results interpreted by me: 09/26/16 09/26/16 01:51 01:51 Hgb 11.3 L Hct 34.4 L RDW 14.1 H Chloride 108 H Discharge - Discharge Clinical Impression: Abdominal pain Qualifiers: Abdominal location: unspecified location Qualified Code(s): R10.9 - Unspecified abdominal pain Condition: Stable Disposition: HOME, SELF-CARE Instructions: Abdominal Pain ([facility]) Additional Instructions: Follow up with your primary care provider in one to 2 days. Return to the emergency room immediately if symptoms worsen or any additional concerns.
[2016-09-26 02:00] LABS: ABSOLUTE EOSINOPHILS # (AUTO) 0.1 10^3/uL (0.0-0.6); ABSOLUTE LYMPHOCYTES (AUTO) 1.7 10^3/uL (0.5-4.7); ABSOLUTE MONOCYTES (AUTO) 0.4 10^3/uL (0.1-1.4); ABSOLUTE NEUT (AUTO) 3.1 10^3/uL (1.7-8.2); BASOPHILS % (AUTO) 0.9 % (0-2); EOSINOPHILS % (AUTO) 1.4 % (0-6); HEMATOCRIT 34.4 % (36.0-47.0); HEMOGLOBIN 11.3 g/dL (12.0-15.5); HGB HCT DIFFERENCE -0.5; LYMPHOCYTES % (AUTO) 32.1 % (13-45); MEAN CORPUSCULAR HEMOGLOBIN 29.1 pg (27.0-33.4); MEAN CORPUSCULAR HGB CONC 32.9 g/dL (32.0-36.0); MEAN CORPUSCULAR VOLUME 88 fl (80-97); RED BLOOD COUNT 3.89 10^6/uL (3.72-5.28); RED CELL DISTRIBUTION WIDTH 14.1 % (11.5-14.0); SEGMENTED NEUTROPHILS % (AUTO) 57.6 % (42-78); WHITE BLOOD COUNT 5.3 10^3/uL (4.0-10.5)
[2016-09-26 02:18] LABS: ALANINE AMINOTRANSFERASE 29 U/L (9-52); ALKALINE PHOSPHATASE 69 U/L (38-126); ANION GAP 13 (5-19); ASPARTATE AMINO TRANSFERASE 35 U/L (14-36); BILIRUBIN,DIRECT 0.4 mg/dL (0.0-0.4); BILIRUBIN,TOTAL 0.6 mg/dL (0.2-1.3); BLOOD UREA NITROGEN 11 mg/dL (7-20); CALCIUM 9.8 mg/dL (8.4-10.2); CARBON DIOXIDE 24 mmol/L (22-30); CHLORIDE 108 mmol/L (98-107); CREATININE RESULT 0.83 mg/dL (0.52-1.25); GLUCOSE 82 mg/dL (75-110); LIPASE 152.4 U/L (23-300); POTASSIUM 3.9 mmol/L (3.6-5.0); SODIUM 144.6 mmol/L (137-145); TOTAL PROTEIN 7.8 g/dL (6.3-8.2)
[2016-09-26 02:30] LABS: APPEARANCE,URINE CLEAR; BILIRUBIN,URINE NEGATIVE (NEGATIVE); GLUCOSE, URINE NEGATIVE (NEGATIVE); KETONES,URINE NEGATIVE (NEGATIVE); LEUKOCYTE ESTERASE,URINE NEGATIVE (NEGATIVE); NITRITE,URINE NEGATIVE (NEGATIVE); PROTEIN,URINE NEGATIVE (NEGATIVE); UROBILINOGEN,URINE NEGATIVE mg/dL (<2.0)
[2016-09-26 03:09] VITALS: BP 128/84
== END 2016-09-26 03:08 | disposition home or self-care (01) ==
LOC: ER 20:55
DX: R10.9 Unspecified abdominal pain (principal); R10.13 Epigastric pain
CPT/HCPCS: 36415; 80053; 81001; 83690; 84703; 85025; 99283

== ENCOUNTER 2016-09-26 21:07 | Emergency (ER) | payer MEDICARE, MEDICAID ==
[2016-09-27 03:56] LABS: APPEARANCE,URINE CLEAR; BILIRUBIN,URINE NEGATIVE (NEGATIVE); GLUCOSE, URINE NEGATIVE (NEGATIVE); KETONES,URINE NEGATIVE (NEGATIVE); LEUKOCYTE ESTERASE,URINE NEGATIVE (NEGATIVE); NITRITE,URINE NEGATIVE (NEGATIVE); PROTEIN,URINE NEGATIVE (NEGATIVE); URINE SPECIFIC GRAVITY 1.006; UROBILINOGEN,URINE NEGATIVE mg/dL (<2.0)
--- NOTE | 2016-09-27 04:41 | ER Document Report ---
HPI - HPI Patient complains to provider of: bladder pressure Pain Level: Denies Context: Patient is a 41-year-old female that comes emergency department for chief complaint of "pressure over the body". When asked where she has pressure specifically she states it is in her bladder area. Patient denies dysuria, flank pain, fever, vomiting. She states she isn't sure if she is or not and although she was tested for this recently she cannot remember the results. Patient states she has schizophrenia and that she hears only rare voices, denies SI or HI, states she is "not here for psych", states she is doing well at home. - REPRODUCTIVE Reproductive: DENIES: : - DERM Skin Color: Normal, [place] Past Medical History - General Information source: Patient - Social History Smoking Status: Never Smoker Frequency of alcohol use: None Drug Abuse: None Lives with: Family Family History: Reviewed & Not Pertinent Renal/ Medical History: Denies: Hx Peritoneal Dialysis Psychiatric Medical History: Reports: Hx Anxiety, Hx Bipolar Disorder, Hx Schizophrenia Past Surgical History: Reports: Hx Genitourinary Surgery, Hx Oral Surgery, Other - Ectopic in the past. 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 - Immunizations Hx Diphtheria, Pertussis, Tetanus Vaccination: Yes Vertical Provider Document - INFECTION CONTROL TRAVEL OUTSIDE OF THE [place] IN LAST 30 DAYS: No - HEENT HEENT: Atraumatic, Normal ENT Exam, Normocephalic - NECK Neck: Normal Inspection - RESPIRATORY Respiratory: Breath Sounds Normal, No Respiratory Distress O2 Sat by Pulse Oximetry: 99 - CARDIOVASCULAR Cardiovascular: Regular Rate, Regular Rhythm - GI/ABDOMEN Gastrointestinal: Abdomen Soft. negative: Abdomen Non-Tender - BACK Back: Normal Inspection. negative: Abnormal Inspection - MUSCULOSKELETAL/EXTREMETIES Musculoskeletal/Extremeties: MAEW, FROM, Non-Tender - NEURO Level of Consciousness: Awake, Alert, Appropriate Course - Re-evaluation Re-evalutation: Patient is cooperative, has a soft abdomen, has normal vital signs, has a normal urinalysis and test is negative. I discussed these results patient, she states gratefulness. Asked if she had any other concerns and she states that she does not and that she wants to leave, she states that she is planning on following up with her psychiatrist today and she restates that she is doing well and denies SI or HI. - Vital Signs Vital signs: Temp Pulse Resp BP Pulse Ox 98.6 F 96 18 132/82 H 99 09/26/16 21:48 09/26/16 21:48 09/26/16 21:48 09/26/16 21:48 09/26/16 21:48 Discharge - Discharge Clinical Impression: Symptom involving bladder Schizophrenia Qualifiers: Schizophrenia type: unspecified Qualified Code(s): F20.9 - Schizophrenia, unspecified Condition: Stable Disposition: HOME, SELF-CARE Additional Instructions: Your urine test is normal. Your test is negative. Follow-up with primary care. Return to emergency department for any concerning symptoms.
[2016-09-27 05:08] VITALS: BP 120/76
== END 2016-09-27 04:55 | disposition home or self-care (01) ==
LOC: ER 21:07
DX: N32.9 Bladder disorder, unspecified (principal); F20.9 Schizophrenia, unspecified
CPT/HCPCS: 81001; 81025; 99284

== ENCOUNTER 2016-09-28 03:41 | Emergency (ER) | payer MEDICARE, OTHER ==
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
[2016-09-28] MEDS ORDERED: DIPHENHYDRAMINE HCL 25 MG CAPSULE PO ONE ×2 (05:25→06:50)
[2016-09-28 06:35] VITALS: BP 140/76
== END 2016-09-28 06:35 | disposition home or self-care (01) ==
LOC: ER 03:41
DX: F41.9 Anxiety disorder, unspecified (principal)
CPT/HCPCS: 99283; A9270

== ENCOUNTER 2016-10-05 21:05 | Emergency (ER) | payer MEDICARE, MEDICAID ==
--- NOTE | 2016-10-05 22:38 | ER Document Report ---
ED General - General Chief Complaint: Abdominal Pain Stated Complaint: ABDOMINAL PAIN Time Seen by Provider: 10/05/16 22:26 Notes: Patient is a 41-year-old female with a history of schizoaffective disorder who presents complaining of a sensation of abdominal fullness and requesting an ultrasound to confirm that she is not . Patient has been to this emergency department repeatedly for this exact same concern. She denies any abdominal pain nausea or vomiting. No vaginal itching or discharge. She is uncertain of when her last menstrual cycle was completed. She is not seeing her primary care doctor regarding today's concerns. Nothing improves or worsens her symptoms. TRAVEL OUTSIDE OF THE [place] IN LAST 30 DAYS: No - Related Data Allergies/Adverse Reactions: iodine [Iodine] Allergy (Verified 09/25/16 21:59) Past Medical History - General Information source: Patient - Social History Smoking Status: Never Smoker Frequency of alcohol use: None Drug Abuse: None Family History: Reviewed & Not Pertinent Renal/ Medical History: Denies: Hx Peritoneal Dialysis Psychiatric Medical History: Reports: Hx Anxiety, Hx Bipolar Disorder, Hx Schizophrenia Past Surgical History: Reports: Hx Genitourinary Surgery, Hx Oral Surgery, Other - Ectopic in the past. 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 - Immunizations Hx Diphtheria, Pertussis, Tetanus Vaccination: Yes Review of Systems - Review of Systems Notes: Constitutional: Negative for fever. HENT: Negative for sore throat. Eyes: Negative for visual changes. Cardiovascular: Negative for chest pain. Respiratory: Negative for shortness of breath. Gastrointestinal: Negative for abdominal pain, vomiting or diarrhea. Genitourinary: Negative for dysuria. Musculoskeletal: Negative for back pain. Skin: Negative for rash. Neurological: Negative for headaches, weakness or numbness. 10 point ROS negative except as marked above and in HPI. Physical Exam - Vital signs Vitals: Pulse Resp BP Pulse Ox 88 16 137/86 H 100 10/05/16 21:35 10/05/16 21:35 10/05/16 21:35 10/05/16 21:35 Interpretation: Normal Notes: PHYSICAL EXAMINATION: GENERAL: Well-appearing, well-nourished and in no acute distress. HEAD: Atraumatic, normocephalic. EYES: Pupils equal round and reactive to light, extraocular movements intact, sclera anicteric, conjunctiva are normal. ENT: nares patent, oropharynx clear without exudates. Moist mucous membranes. NECK: Normal range of motion, supple without lymphadenopathy LUNGS: Breath sounds clear to auscultation bilaterally and equal. No wheezes rales or rhonchi. HEART: Regular rate and rhythm without murmurs ABDOMEN: Soft, nontender, normoactive bowel sounds. No guarding, no rebound. No masses appreciated. EXTREMITIES: Normal range of motion, no pitting or edema. No cyanosis. NEUROLOGICAL: No focal neurological deficits. Moves all extremities spontaneously and on command. PSYCH: Normal mood, normal affect. SKIN: Warm, Dry, normal turgor, no rashes or lesions noted. Course - Re-evaluation Re-evalutation: 10/05/16 22:36 Patient again presents with concerns that she may be . She is presenting to this emergency to multiple occasions for this complaint and states that the only way she can no fractures or not she receives an ultrasound. Per patient request, I have performed a complete bedside ultrasound with appropriate visualization of her uterus. There is no evidence of an intrauterine . Patient has declined urine and blood testing and is satisfied with this ultrasound. She has no focal abdominal tenderness on examination, no rebound or guarding. She denies any abdominal pain nausea or vomiting. No indication for further evaluation or workup. And this is likely psychiatric in origin but given that this is not an acutely dangerous believe or concern, I do not believe patient requires psychiatric assessment for involuntary commitment.At this time will discharge with return precautions and follow-up recommendations. Verbal discharge instructions given a the bedside and opportunity for questions given. Medication warnings reviewed. Patient is in agreement with this plan and has verbalized understanding of return precautions and the need for primary care follow-up in the next 24-72 hours. - Vital Signs Vital signs: Temp Pulse Resp BP Pulse Ox 85 18 140/85 H 100 10/05/16 23:45 10/05/16 23:45 10/05/16 23:45 10/05/16 23:45 Discharge - Discharge Clinical Impression: Abdominal fullness Condition: Good Disposition: HOME, SELF-CARE Additional Instructions: You are not based on ultrasound at the bedside.Please return to the emergency room immediately if you experience any concerning symptoms including high fevers, severe headache, chest pain, difficulty breathing, abdominal pain, slurred speech, numbness or weakness in your arms or legs, or any other symptom that concerns you.
[2016-10-05 23:46] VITALS: BP 140/85
== END 2016-10-05 23:46 | disposition home or self-care (01) ==
LOC: ER 21:05
DX: R14.0 Abdominal distension (gaseous) (principal); F25.9 Schizoaffective disorder, unspecified
CPT/HCPCS: 99283

== ENCOUNTER 2016-10-14 23:12 | Emergency (ER) | payer MEDICARE, MEDICAID ==
--- NOTE | 2016-10-15 04:41 | ER Document Report ---
ED General - General Chief Complaint: Other Stated Complaint: WANTS TEST DONE Time Seen by Provider: 10/15/16 04:25 TRAVEL OUTSIDE OF THE [place] IN LAST 30 DAYS: No - HPI Notes: 41-year-old female presents with written reason for visit on the triage form of "David projective". Records indicate she has a history of schizophrenia. It was reported that she was here to get a test but she tells me she feels slightly dizzy and feels like something is moving in her abdomen and was concerned it might be a baby. She reports a neighbor as well noticing this. She denies any pain, Bowel change nausea or vomiting. Patient was seen here approximately 10 days ago and had a bedside ultrasound showing no fetus. - Related Data Allergies/Adverse Reactions: iodine [Iodine] Allergy (Verified 09/25/16 21:59) Past Medical History - Social History Smoking Status: Current Every Day Smoker Family History: Reviewed & Not Pertinent Patient has suicidal ideation: No Patient has homicidal ideation: No Renal/ Medical History: Denies: Hx Peritoneal Dialysis Psychiatric Medical History: Reports: Hx Anxiety, Hx Bipolar Disorder, Hx Schizophrenia Past Surgical History: Reports: Hx Genitourinary Surgery, Hx Oral Surgery, Other - Ectopic in the past. 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 - Immunizations Hx Diphtheria, Pertussis, Tetanus Vaccination: Yes Physical Exam - Vital signs Vitals: Temp Pulse Resp BP Pulse Ox 98.2 F 90 16 141/86 H 99 10/14/16 23:23 10/14/16 23:23 10/14/16 23:23 10/14/16 23:23 10/14/16 23:23 - Notes Notes: GENERAL: VS as per nursing doc. Well-appearing, well-nourished and in no acute distress. HEAD: Atraumatic, normocephalic. EYES: Pupils equal round and reactive to light, extraocular movements intact, sclera anicteric, no conjunctival injection or discharge. ENT: Nares patent, oropharynx clear without exudates, moist mucous membranes. NECK: Normal range of motion, supple without lymphadenopathy. LUNGS: Breath sounds clear to auscultation bilaterally and equal. No wheezes rales or rhonchi. HEART: Regular rate and rhythm without murmurs. ABDOMEN: Soft, non-tender, normoactive bowel sounds. No guarding, no rebound. No masses appreciated. No [place] sign. BACK: No CVA tenderness. EXTREMITIES: Normal range of motion, no calf tenderness, no edema. NEUROLOGICAL: Gross neurologic deficits noted. Gait intact. PSYCH: Normal mood, normal affect. No reports of suicidal homicidal ideation. No active evidence of hallucinations, possibly some delusions and she has had repetitive visits for the same. SKIN: Warm, dry, normal turgor, no lesions noted. Course - Re-evaluation Re-evalutation: 10/15/16 04:42 Again the patient has had repetitive issues and apparently is somewhat fixated on this. I have recommended she do home test if she has some concern and we can verify if she has 1 positive. She voices understanding. Her exam is completely normal at this point. - Vital Signs Vital signs: Temp Pulse Resp BP Pulse Ox 98.2 F 90 16 141/86 H 99 10/14/16 23:23 10/14/16 23:23 10/14/16 23:23 10/14/16 23:23 10/14/16 23:23 Discharge - Discharge Clinical Impression: Dizziness, ABDOMINAL WALL MOVEMENTS Condition: Good Disposition: HOME, SELF-CARE Additional Instructions: Return for emergency or concern. Referrals: JASPREET LEE MD [Primary Care Provider] - Follow up in 3-5 days
[2016-10-15 06:45] VITALS: BP 140/90
== END 2016-10-15 05:27 | disposition home or self-care (01) ==
LOC: ER 23:12
DX: R42 Dizziness and giddiness (principal); R19.8 Other specified symptoms and signs involving the digestive system and abdomen; F17.200 Nicotine dependence, unspecified, uncomplicated; Z87.59 Personal history of other complications of pregnancy, childbirth and the puerperium
CPT/HCPCS: 99283

== ENCOUNTER 2016-11-20 04:29 | Emergency (ER) | payer MEDICARE, MEDICAID ==
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
[2016-11-20 06:20] VITALS: BP 129/87
== END 2016-11-20 06:19 | disposition home or self-care (01) ==
LOC: ER 04:29
DX: F20.9 Schizophrenia, unspecified (principal); Z79.899 Other long term (current) drug therapy; R51 Headache; R03.0 Elevated blood-pressure reading, without diagnosis of hypertension; F17.210 Nicotine dependence, cigarettes, uncomplicated
CPT/HCPCS: 99283; 99285

== ENCOUNTER 2016-11-20 23:31 | Emergency (ER) | payer MEDICARE, MEDICAID ==
[2016-11-21] MEDS ORDERED: DIPHENHYDRAMINE HCL 25 MG CAPSULE PO ONE (00:57)
[2016-11-21] MEDS ORDERED: ACETAMINOPHEN 325 MG TABLET PO ONE (00:57)
--- NOTE | 2016-11-21 01:03 | ER Document Report ---
HPI - HPI Patient complains to provider of: headache Onset: This afternoon Onset/Duration: Sudden Quality of pain: Dull Severity: Severe Pain Level: 5 Context: Presents emergency department with complaints of headache. She reports it started this afternoon. She reports she has not taken any medications for the headache. She reports she did not take anything because she did not have anything. She denies other symptoms such as fever vomiting diarrhea cough. She denies trauma. Patient looks good no distress answers all questions appropriately. Associated Symptoms: None Exacerbated by: Denies Relieved by: Denies Similar symptoms previously: No Recently seen / treated by doctor: No - CARDIOVASCULAR Cardiovascular: DENIES: Chest pain - REPRODUCTIVE Reproductive: DENIES: : - DERM Skin Color: Normal Past Medical History - General Information source: Patient Last Menstrual Period: last week - Social History Smoking Status: Current Every Day Smoker Cigarette use (# per day): Yes Chew tobacco use (# tins/day): No Frequency of alcohol use: None Drug Abuse: None Family History: Reviewed & Not Pertinent Patient has suicidal ideation: No Patient has homicidal ideation: No Renal/ Medical History: Reports: Hx Ectopic . Denies: Hx Peritoneal Dialysis Psychiatric Medical History: Reports: Hx Anxiety, Hx Bipolar Disorder, Hx Schizophrenia Past Surgical History: Reports: Hx Genitourinary Surgery, Hx Oral Surgery, Other - Ectopic in the past. 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 - Immunizations Hx Diphtheria, Pertussis, Tetanus Vaccination: Yes Vertical Provider Document - CONSTITUTIONAL Agree With Documented VS: Yes Exam Limitations: No Limitations General Appearance: WD/WN, No Apparent Distress - nontoxic looking - INFECTION CONTROL TRAVEL OUTSIDE OF THE [place] IN LAST 30 DAYS: No - HEENT HEENT: Atraumatic, Normal ENT Exam, Normocephalic, PERRLA. negative: Conjuctival Injection, Pharyngeal Exudate, Pharyngeal Tenderness, Pharyngeal Erythema, Tympanic Membrane Red, Tympanic Membrane Bulging - NECK Neck: Normal Inspection, Supple. negative: Lymphadenopathy-Left, Lymphadenopathy-Right - RESPIRATORY Respiratory: Breath Sounds Normal, No Respiratory Distress - CARDIOVASCULAR Cardiovascular: Regular Rate - MUSCULOSKELETAL/EXTREMETIES Musculoskeletal/Extremeties: MAEW FROM - NEURO Level of Consciousness: Awake, Alert, Appropriate Motor/Sensory: No Motor Deficit - DERM Integumentary: Warm, Dry Course - Re-evaluation Re-evalutation: 11/21/16 01:01 patient Instructed on Tylenol and Benadryl, importance of fu with a pcp for continued NELSON. She verbalized understanding. - Vital Signs Vital signs: 11/21/16 01:04 98.4 87 16 134/81 100% Discharge - Discharge Clinical Impression: Elevated blood pressure reading Headache Qualifiers: Headache type: unspecified Headache chronicity pattern: unspecified pattern Intractability: not intractable Qualified Code(s): R51 - Headache Condition: Stable Disposition: HOME, SELF-CARE Instructions: Headache ([facility]), Use of Diphenhydramine, Acetaminophen Additional Instructions: *You have been evaluated for a headache, elevated blood pressure reading *Take tylenol and benadryl as indicated *Rest *Follow up with a primary care provider within 3 days for recheck *Return to ED for worsening condition, changes, needs Monitor your blood pressure. Your blood pressure was elevated today. This may be because you were anxious, in pain or because you need medication. It is important to follow up with your primary care provider for full evaluation. Forms: Elevated Blood Pressure
[2016-11-21 01:20] VITALS: BP 130/72
== END 2016-11-21 01:20 | disposition home or self-care (01) ==
LOC: ER 23:31
DX: R51 Headache (principal); R03.0 Elevated blood-pressure reading, without diagnosis of hypertension; F17.210 Nicotine dependence, cigarettes, uncomplicated
CPT/HCPCS: 99283; A9270 ×2

== ENCOUNTER 2016-11-30 04:11 | Emergency (ER) | payer MEDICARE, MEDICAID ==
--- NOTE | 2016-11-30 07:05 | ER Document Report ---
HPI - HPI Patient complains to provider of: Bilateral foot and ankle swelling Onset: Other - Intermittently for 1 month Onset/Duration: Gradual, Intermittent Pain Level: Denies Context: 41-year-old female with multiple psychiatric diagnoses came to the emergency room via ambulance because when she woke up off the chair and went to take a shower she noticed some swelling to both of her ankles and feet. It is been occurring intermittently for months. No history of diabetes or renal problems. No chest pain or shortness of breath. No abdominal pain. No extremity pain. No radiculopathy. Associated Symptoms: None Exacerbated by: Denies Relieved by: Denies Similar symptoms previously: No Recently seen / treated by doctor: No - ROS ROS below otherwise negative: Yes Systems Reviewed and Negative: Yes All other systems reviewed and negative - REPRODUCTIVE Reproductive: DENIES: : - DERM Skin Color: Normal Past Medical History - General Information source: Patient - Social History Smoking Status: Never Smoker Frequency of alcohol use: Occasional Drug Abuse: None Family History: Reviewed & Not Pertinent Patient has suicidal ideation: No Patient has homicidal ideation: No Renal/ Medical History: Reports: Hx Ectopic . Denies: Hx Peritoneal Dialysis Psychiatric Medical History: Reports: Hx Anxiety, Hx Bipolar Disorder, Hx Schizophrenia Past Surgical History: Reports: Hx Genitourinary Surgery, Hx Oral Surgery, Other - Ectopic in the past. 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 - Immunizations Hx Diphtheria, Pertussis, Tetanus Vaccination: Yes Vertical Provider Document - CONSTITUTIONAL Agree With Documented VS: Yes Exam Limitations: No Limitations - INFECTION CONTROL TRAVEL OUTSIDE OF THE [place] IN LAST 30 DAYS: No - HEENT HEENT: Atraumatic, Normocephalic - NECK Neck: Supple - RESPIRATORY Respiratory: Breath Sounds Normal, No Respiratory Distress O2 Sat by Pulse Oximetry: 98 - CARDIOVASCULAR Cardiovascular: Regular Rate, Regular Rhythm - GI/ABDOMEN Gastrointestinal: Abdomen Non-Tender, Normal Bowel Sounds. negative: Abdominal Mass - MUSCULOSKELETAL/EXTREMETIES Musculoskeletal/Extremeties: MAEW, FROM, Non-Tender, Edema - minimal edema to righ tankle, n/v intact, 2 + pretty DP - NEURO Level of Consciousness: Awake, Alert, Appropriate Motor/Sensory: No Motor Deficit, No Sensory Deficit - DERM Integumentary: Warm, Dry, No Rash Course - Re-evaluation Re-evalutation: 11/30/16 08:34 Hemoglobin is 10.2 and she is been this low before. She does not remember if they did anything for her. It is not microcytic. I will have her follow-up with the family practice doctor. - Vital Signs Vital signs: Temp Pulse Resp BP Pulse Ox 97.9 F 89 16 125/70 98 11/30/16 04:16 11/30/16 06:58 11/30/16 06:58 11/30/16 06:58 11/30/16 06:58 - Laboratory Result Diagrams: 11/30/16 07:30 11/30/16 07:30 Discharge - Discharge Clinical Impression: Right ankle swelling Anemia Qualifiers: Anemia type: unspecified type Qualified Code(s): D64.9 - Anemia, unspecified Disposition: HOME, SELF-CARE Instructions: Edema, Peripheral ([facility]), Anemia ([facility]), Family Physicians / Practices Additional Instructions: see your doctor/family practice for follow up copy of your complete blood count and chemistry elevate your legs at night to reduce the swelling Please complete the patient satisfaction survey if you get one, and return it.. If you do not receive a survey, then you can go to the [facility] website, [email or web address] and place your comments about your very good care. Thank you very much. It was a pleasure being your medical provider today.
[2016-11-30 07:50] LABS: ABSOLUTE EOSINOPHILS # (AUTO) 0.3 10^3/uL (0.0-0.6); ABSOLUTE MONOCYTES (AUTO) 0.4 10^3/uL (0.1-1.4); ABSOLUTE NEUT (AUTO) 2.5 10^3/uL (1.7-8.2); BASOPHILS % (AUTO) 0.7 % (0-2); EOSINOPHILS % (AUTO) 6.1 % (0-6); HEMATOCRIT 31.5 % (36.0-47.0); HEMOGLOBIN 10.2 g/dL (12.0-15.5); HGB HCT DIFFERENCE -0.9; LYMPHOCYTES % (AUTO) 37.9 % (13-45); MEAN CORPUSCULAR HEMOGLOBIN 28.9 pg (27.0-33.4); MEAN CORPUSCULAR HGB CONC 32.4 g/dL (32.0-36.0); MEAN CORPUSCULAR VOLUME 89 fl (80-97); MONOCYTES % (AUTO) 8.2 % (3-13); RED BLOOD COUNT 3.54 10^6/uL (3.72-5.28); RED CELL DISTRIBUTION WIDTH 14.9 % (11.5-14.0); SEGMENTED NEUTROPHILS % (AUTO) 47.1 % (42-78); WHITE BLOOD COUNT 5.2 10^3/uL (4.0-10.5)
[2016-11-30 08:04] LABS: ALANINE AMINOTRANSFERASE 32 U/L (9-52); ALBUMIN 3.7 g/dL (3.5-5.0); ALKALINE PHOSPHATASE 73 U/L (38-126); ANION GAP 9 (5-19); ASPARTATE AMINO TRANSFERASE 24 U/L (14-36); BILIRUBIN,DIRECT 0.3 mg/dL (0.0-0.4); BILIRUBIN,TOTAL 0.3 mg/dL (0.2-1.3); BLOOD UREA NITROGEN 15 mg/dL (7-20); CALCIUM 9.2 mg/dL (8.4-10.2); CARBON DIOXIDE 24 mmol/L (22-30); CHLORIDE 109 mmol/L (98-107); CREATININE RESULT 0.79 mg/dL (0.52-1.25); GLUCOSE 122 mg/dL (75-110); SODIUM 141.7 mmol/L (137-145); TOTAL PROTEIN 6.8 g/dL (6.3-8.2)
[2016-11-30 08:26] VITALS: BP 115/55
== END 2016-11-30 08:40 | disposition home or self-care (01) ==
LOC: ER 04:11
DX: M25.471 Effusion, right ankle (principal); D64.9 Anemia, unspecified
CPT/HCPCS: 36415; 80053; 85025; 99283

== ENCOUNTER 2016-12-01 09:28 | Emergency (ER) | payer MEDICARE, MEDICAID ==
[2016-12-01 09:36] VITALS: BP 150/96
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
== END 2016-12-01 11:09 | disposition home or self-care (01) ==
LOC: ER 09:28
DX: T76.21XA Adult sexual abuse, suspected, initial encounter (principal); F20.9 Schizophrenia, unspecified; X58.XXXA Exposure to other specified factors, initial encounter
CPT/HCPCS: 99284

== ENCOUNTER 2016-12-02 04:54 | Emergency (ER) | payer MEDICARE, MEDICAID ==
[2016-12-02 06:35] LABS: APPEARANCE,URINE CLEAR; BILIRUBIN,URINE NEGATIVE (NEGATIVE); GLUCOSE, URINE NEGATIVE (NEGATIVE); KETONES,URINE NEGATIVE (NEGATIVE); LEUKOCYTE ESTERASE,URINE NEGATIVE (NEGATIVE); NITRITE,URINE NEGATIVE (NEGATIVE); PROTEIN,URINE NEGATIVE (NEGATIVE); URINE SPECIFIC GRAVITY 1.009; UROBILINOGEN,URINE NEGATIVE mg/dL (<2.0)
[2016-12-02 07:00] LABS: URINE BARBITURATES SCREEN NEGATIVE; URINE METHADONE SCREEN NEGATIVE; URINE OPIATES LOW NEGATIVE; URINE PHENCYCLIDINE SCREEN NEGATIVE
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
[2016-12-02 09:42] VITALS: BP 130/95
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
== END 2016-12-02 09:48 | disposition home or self-care (01) ==
LOC: ER 04:54
DX: R44.3 Hallucinations, unspecified (principal); F20.9 Schizophrenia, unspecified
CPT/HCPCS: 80307; 81001; 99285

== ENCOUNTER 2016-12-21 23:05 | Emergency (ER) | payer MEDICARE, OTHER, MEDICAID ==
[2016-12-22 00:01] LABS: ABSOLUTE EOSINOPHILS # (AUTO) 0.2 10^3/uL (0.0-0.6); ABSOLUTE LYMPHOCYTES (AUTO) 2.4 10^3/uL (0.5-4.7); ABSOLUTE MONOCYTES (AUTO) 0.5 10^3/uL (0.1-1.4); ABSOLUTE NEUT (AUTO) 2.3 10^3/uL (1.7-8.2); BASOPHILS % (AUTO) 0.3 % (0-2); EOSINOPHILS % (AUTO) 4.2 % (0-6); HEMATOCRIT 35.1 % (36.0-47.0); HEMOGLOBIN 11.5 g/dL (12.0-15.5); HGB HCT DIFFERENCE -0.6; LYMPHOCYTES % (AUTO) 43.8 % (13-45); MEAN CORPUSCULAR HEMOGLOBIN 29.2 pg (27.0-33.4); MEAN CORPUSCULAR HGB CONC 32.7 g/dL (32.0-36.0); MEAN CORPUSCULAR VOLUME 89 fl (80-97); MONOCYTES % (AUTO) 9.7 % (3-13); RED BLOOD COUNT 3.92 10^6/uL (3.72-5.28); RED CELL DISTRIBUTION WIDTH 15.3 % (11.5-14.0); WHITE BLOOD COUNT 5.5 10^3/uL (4.0-10.5)
[2016-12-22 00:07] LABS: APPEARANCE,URINE CLEAR; BILIRUBIN,URINE NEGATIVE (NEGATIVE); GLUCOSE, URINE NEGATIVE (NEGATIVE); KETONES,URINE NEGATIVE (NEGATIVE); LEUKOCYTE ESTERASE,URINE NEGATIVE (NEGATIVE); NITRITE,URINE NEGATIVE (NEGATIVE); PROTEIN,URINE NEGATIVE (NEGATIVE); URINE SPECIFIC GRAVITY 1.016; UROBILINOGEN,URINE NEGATIVE mg/dL (<2.0)
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
[2016-12-22 00:19] LABS: URINE BARBITURATES SCREEN NEGATIVE; URINE METHADONE SCREEN NEGATIVE; URINE OPIATES LOW NEGATIVE; URINE PHENCYCLIDINE SCREEN NEGATIVE
[2016-12-22 00:36] LABS: ALANINE AMINOTRANSFERASE 28 U/L (9-52); ALBUMIN 4.4 g/dL (3.5-5.0); ALKALINE PHOSPHATASE 59 U/L (38-126); ANION GAP 11 (5-19); ASPARTATE AMINO TRANSFERASE 21 U/L (14-36); BILIRUBIN,DIRECT 0.2 mg/dL (0.0-0.4); BILIRUBIN,TOTAL 0.4 mg/dL (0.2-1.3); BLOOD UREA NITROGEN 12 mg/dL (7-20); CALCIUM 9.7 mg/dL (8.4-10.2); CARBON DIOXIDE 26 mmol/L (22-30); CHLORIDE 103 mmol/L (98-107); GLUCOSE 88 mg/dL (75-110); POTASSIUM 4.5 mmol/L (3.6-5.0); SODIUM 139.8 mmol/L (137-145); TOTAL PROTEIN 7.6 g/dL (6.3-8.2)
[2016-12-22 00:43] LABS: ALCOHOL < 10 mg/dL (NONE DETECTED)
[2016-12-22 05:14] VITALS: BP 136/80
[2016-12-22] MEDS ORDERED: HALOPERIDOL 5 MG TABLET PO SCH (06:00)
[2016-12-22] MEDS ORDERED: BUSPIRONE HCL 10 MG TABLET PO SCH (06:00)
[2016-12-22] MEDS ORDERED: HYDROXYZINE PAMOATE 25 MG CAPSULE PO SCH (10:00)
--- NOTE | 2016-12-22 17:40 | EKG REPORT ---
SEVERITY:- NORMAL ECG - SINUS RHYTHM : Confirmed by: Juliette Tamez MD 22-Dec-2016 17:39:23
[2016-12-22] MEDS ORDERED: BENZTROPINE MESYLATE 1 MG TABLET PO SCH (22:00)
== END 2016-12-22 04:25 | disposition left against medical advice (07) ==
LOC: ER 23:05
DX: F29 Unspecified psychosis not due to a substance or known physiological condition (principal); F20.9 Schizophrenia, unspecified; F31.9 Bipolar disorder, unspecified
CPT/HCPCS: 36415; 80053; 80307; 81001; 84443; 85025; 93005; 93010; 99285

== ENCOUNTER 2016-12-22 06:32 | Emergency (ER) | payer MEDICARE, OTHER, MEDICAID ==
--- NOTE | 2016-12-22 07:42 | ER Document Report ---
HPI - HPI Patient complains to provider of: fatigue Onset: Last week Onset/Duration: Persistent Quality of pain: No pain Pain Level: Denies Context: Patient presents complaining of generalized fatigue for the past week. Patient states that she will occasionally feel sick if she does not eat. Patient also reports that occasionally she will have leg cramps. Patient was evaluated here yesterday in the emergency department, but states that she lef t because she did not want to change into a paper gown. Patient states she does plan to see her mental health provider later today as a walk-in. Pt is concerned that she may be . Associated Symptoms: Other - fatigue Exacerbated by: Denies Relieved by: Denies Similar symptoms previously: No Recently seen / treated by doctor: Yes - ROS ROS below otherwise negative: Yes Systems Reviewed and Negative: Yes All other systems reviewed and negative - CONSTITUTIONAL Constitutional: DENIES: Fever - EENT EENT: DENIES: Sore Throat - NEURO Neurology: REPORTS: Weakness - CARDIOVASCULAR Cardiovascular: DENIES: Chest pain - RESPIRATORY Respiratory: DENIES: Trouble Breathing, Coughing - GASTROINTESTINAL Gastrointestinal: DENIES: Abdominal Pain, Nausea, Patient vomiting - REPRODUCTIVE Reproductive: REPORTS: : - MUSCULOSKELETAL Musculoskeletal: DENIES: Back Pain - DERM Skin Color: Dry Prong Skin Problems: None Past Medical History - General Information source: Patient - Social History Smoking Status: Current Every Day Smoker Frequency of alcohol use: None Drug Abuse: None Occupation: none Lives with: Alone Family History: Reviewed & Not Pertinent Patient has suicidal ideation: No Patient has homicidal ideation: No Renal/ Medical History: Reports: Hx Ectopic . Denies: Hx Peritoneal Dialysis Psychiatric Medical History: Reports: Hx Anxiety, Hx Bipolar Disorder, Hx Schizophrenia Past Surgical History: Reports: Hx Genitourinary Surgery, Hx Oral Surgery, Other - Ectopic in the past. No recent [employer] surgeries. - Immunizations Hx Diphtheria, Pertussis, Tetanus Vaccination: Yes Vertical Provider Document - CONSTITUTIONAL Agree With Documented VS: Yes Exam Limitations: No Limitations General Appearance: WD/WN, No Apparent Distress - INFECTION CONTROL TRAVEL OUTSIDE OF THE [place] IN LAST 30 DAYS: No - HEENT HEENT: Atraumatic, Normal ENT Exam, Normocephalic - NECK Neck: Normal Inspection, Supple. negative: Lymphadenopathy-Left, Lymphadenopathy-Right - RESPIRATORY Respiratory: Breath Sounds Normal, No Respiratory Distress O2 Sat by Pulse Oximetry: 100 - CARDIOVASCULAR Cardiovascular: Regular Rate, Regular Rhythm, No Murmur - GI/ABDOMEN Gastrointestinal: Abdomen Soft, Abdomen Non-Tender, No Organomegaly - BACK Back: Normal Inspection. negative: CVA Tenderness-Right, CVA Tenderness-Left - MUSCULOSKELETAL/EXTREMETIES Musculoskeletal/Extremeties: MAEW, FROM - NEURO Level of Consciousness: Awake, Alert, Appropriate Motor/Sensory: No Motor Deficit - DERM Integumentary: Warm, Dry, No Rash Course - Re-evaluation Re-evalutation: 12/22/16 07:[address] Carver regarding pt presentation, recommends ordering HCG. Previous labs reviewed from pt's ER visit yesterday 12/22/16 09:27 The patient has been informed that they may have pre-hypertension or hypertension based on a blood pressure reading in the emergency department. I recommend that patient call the primary care provider listed on their discharge instructions or a physician of their choice by this week to arrange follow-up for further evaluation of possible pre-hypertension her hypertension. 12/22/16 09:27 Reviewed patient's laboratory studies performed at 1130 last night. No significant abnormalities. Patient is not suicidal or homicidal at this time and does not meet any criteria for involuntary commitment. Patient verbalized the plan to follow-up with her mental health provider this morning for further evaluation. Polina with mental health as well as Dr. Carver agrees with discharge plan of care. 12/22/16 09:30 - Vital Signs Vital signs: Temp Pulse Resp BP Pulse Ox 98.4 F 87 19 148/97 H 100 12/22/16 06:40 12/22/16 06:40 12/22/16 06:42 12/22/16 06:40 12/22/16 06:40 - Laboratory Laboratory results interpreted by me: 12/22/16 09:27 Reviewed labs from patient previous ER visit from 1130 last night Discharge - Discharge Clinical Impression: Elevated blood pressure reading, Fatigue, Hx of bipolar disorder, Hx of schizophrenia, Bipolar 1 disorder with moderate elijah Condition: Fair Disposition: HOME, SELF-CARE Instructions: Fatigue ([facility]) Additional Instructions: Bipolar Disorder Bipolar disorder is also called manic-depressive disorder. Depression alternates with brain hyperactivity called elijah. Each phase lasts from several days to a few weeks. We don't know exactly what causes bipolar disorder , but it's treatable. During the "manic phase," you may feel elated and energetic. You may have racing thoughts, rapid speech, increased activity, and grandiose ideas. During this time, you may not realize how poor your judgement is. Inappropriate spending, drug abuse, excessive alcohol use, marriage problems, and irresponsible sexual behavior are common during the manic phase. During the "depressive phase," you might feel depressed, guilty, worthless , fatigued, and unable to concentrate. You might have thoughts of suicide. Good treatments are available for bipolar disorder. [place] is a classic drug for bipolar disorder, and is still often useful. If the manic phase is very mild, an antidepressant alone can be prescribed. If the manic phase is very severe, an antipsychotic medicine (such as Haldol) may be needed. The treatment must be matched to your symptoms, so it's important to work closely with your psychiatric care provider. Contact your physician, the hospital emergency center, crisis line, or your counsellor if you are losing control or having self-destructive thoughts. You have indicated you have an appointment today at [facility]. Please follow up with your provider regarding any concerns regarding your medications. Please return if your symptoms worsen. Forms: Elevated Blood Pressure Referrals: [facility] [Provider Group] - 12/22/16 [facility] [Provider Group] - Follow up as needed
--- NOTE | 2016-12-22 09:33 | ER Document Report ---
ED Psych Disorder / Suicide - General Chief Complaint: General Weakness Stated Complaint: WEAKNESS Time Seen by Provider: 12/22/16 07:21 Information source: Patient, [facility] Records TRAVEL OUTSIDE OF THE [place] IN LAST 30 DAYS: No - HPI Patient complains to provider of: Bizarre behavior, Hallucinating Onset: Other Onset was: Cannot confirm - chronic Suicide Risk Factors: Bipolar, Lack of social support Normal mood: Yes Associated symptoms: Normal affect, Normal mood, Auditory hallucinations Similar symptoms previously: Yes Recently seen / treated by doctor: Yes Notes: Patient is a 41 year old female who presented twice within 12 hours requesting assistance. Patient initially presented with delusions and eloped. Patient did return with c/o generalized weakness and possible . Patient this morning states she just needed to get her meds checked out. She states she has had some events occur, and needed to make sure her medications were "rockin the right way." Patient states she has felt more anxious then usual. Patient denies wanting [facility] at this time. She states she would like to follow up with her provider, [facility]] today. Patient states she has a safe ride home. Patient denies SI/HI. Patient is A&O. Mood is manic/euphoric with smiling affect. Patient denies SI/ HI. Patient denies A/V H. Delusions regarding were noted. Thought processes were organized. Conversational speech was light and sing songy for prosody. Intellectual abilities were estimated within average range. Attention and focus were fair. Insight, judgment, and impulse control were poor. Unspecified Bipolar Disorder, per history Patient is psychiatrically cleared for discharge. Plan of care includes patient presenting to [facility]] for medication management. Patient states she has an appointment today. Patient does present euphoric; however, is able to present a plan/engage in discharge planning, etc. I consulted with Dr. Cruz in regards to the care and management of this patient. ED provider is in agreement with disposition and recommendations. - Related Data Allergies/Adverse Reactions: iodine [Iodine] Allergy (Verified 11/20/16 23:34) Past Medical History - General Information source: Patient, [facility] Records - Social History Smoking Status: Current Every Day Smoker Frequency of alcohol use: None Drug Abuse: None Occupation: none Lives with: Alone Family History: Reviewed & Not Pertinent Patient has suicidal ideation: No Patient has homicidal ideation: No Renal/ Medical History: Reports: Hx Ectopic . Denies: Hx Peritoneal Dialysis Psychiatric Medical History: Reports: Hx Anxiety, Hx Bipolar Disorder, Hx Schizophrenia Past Surgical History: Reports: Hx Genitourinary Surgery, Hx Oral Surgery, Other - Ectopic in the past. No recent [employer] surgeries. - Immunizations Hx Diphtheria, Pertussis, Tetanus Vaccination: Yes Physical Exam - Vital signs Vitals: Temp Pulse Resp BP Pulse Ox 98.4 F 87 20 148/97 H 100 12/22/16 06:40 12/22/16 06:40 12/22/16 06:40 12/22/16 06:40 12/22/16 06:40 Course - Vital Signs Vital signs: Temp Pulse Resp BP Pulse Ox 98.4 F 87 19 148/97 H 100 12/22/16 06:40 12/22/16 06:40 12/22/16 06:42 12/22/16 06:40 12/22/16 07:43 Discharge - Discharge Clinical Impression: Bipolar 1 disorder with moderate elijah Condition: Fair Disposition: HOME, SELF-CARE Additional Instructions: Bipolar Disorder Bipolar disorder is also called manic-depressive disorder. Depression alternates with brain hyperactivity called elijah. Each phase lasts from several days to a few weeks. We don't know exactly what causes bipolar disorder , but it's treatable. During the "manic phase," you may feel elated and energetic. You may have racing thoughts, rapid speech, increased activity, and grandiose ideas. During this time, you may not realize how poor your judgement is. Inappropriate spending, drug abuse, excessive alcohol use, marriage problems, and irresponsible sexual behavior are common during the manic phase. During the "depressive phase," you might feel depressed, guilty, worthless , fatigued, and unable to concentrate. You might have thoughts of suicide. Good treatments are available for bipolar disorder. [place] is a classic drug for bipolar disorder, and is still often useful. If the manic phase is very mild, an antidepressant alone can be prescribed. If the manic phase is very severe, an antipsychotic medicine (such as Haldol) may be needed. The treatment must be matched to your symptoms, so it's important to work closely with your psychiatric care provider. Contact your physician, the hospital emergency center, crisis line, or your counsellor if you are losing control or having self-destructive thoughts. You have indicated you have an appointment today at [facility]]. Please follow up with your provider regarding any concerns regarding your medications. Please return if your symptoms worsen. Referrals: [facility] [Provider Group] - Follow up as needed [facility] [Provider Group] - 12/22/16
[2016-12-22 09:39] VITALS: BP 150/93
== END 2016-12-22 09:39 | disposition home or self-care (01) ==
LOC: ER 06:32
DX: F31.2 Bipolar disorder, current episode manic severe with psychotic features (principal); R53.1 Weakness; F41.9 Anxiety disorder, unspecified; Z79.899 Other long term (current) drug therapy; F17.200 Nicotine dependence, unspecified, uncomplicated; R53.83 Other fatigue; R25.2 Cramp and spasm; R03.0 Elevated blood-pressure reading, without diagnosis of hypertension
CPT/HCPCS: 81025; 99284

== ENCOUNTER 2016-12-23 22:26 | Emergency (ER) | payer MEDICARE, MEDICAID ==
[2016-12-23 22:50] VITALS: BP 169/99
== END 2016-12-23 23:00 | disposition left against medical advice (07) ==
LOC: ER 22:26
DX: Z53.21 Procedure and treatment not carried out due to patient leaving prior to being seen by health care provider (principal)

== ENCOUNTER 2018-02-01 05:42 | Emergency (ER) | payer MEDICARE, MEDICAID ==
--- NOTE | 2018-02-01 07:42 | EKG REPORT ---
SEVERITY:- BORDERLINE ECG - SINUS RHYTHM LVH BY VOLTAGE : Confirmed by: Blayne Shirley MD 01-Feb-2018 07:41:27
[2018-02-01 07:43] LABS: ABSOLUTE EOSINOPHILS # (AUTO) 0.1 10^3/uL (0.0-0.6); ABSOLUTE LYMPHOCYTES (AUTO) 1.1 10^3/uL (0.5-4.7); ABSOLUTE MONOCYTES (AUTO) 0.3 10^3/uL (0.1-1.4); ABSOLUTE NEUT (AUTO) 3.1 10^3/uL (1.7-8.2); BASOPHILS % (AUTO) 0.6 % (0-2); EOSINOPHILS % (AUTO) 1.4 % (0-6); HEMATOCRIT 38.8 % (36.0-47.0); HEMOGLOBIN 13.4 g/dL (12.0-15.5); LYMPHOCYTES % (AUTO) 24.3 % (13-45); MEAN CORPUSCULAR HEMOGLOBIN 31.4 pg (27.0-33.4); MEAN CORPUSCULAR HGB CONC 34.6 g/dL (32.0-36.0); MEAN CORPUSCULAR VOLUME 91 fl (80-97); MONOCYTES % (AUTO) 7.2 % (3-13); PLATELET COUNT 348 10^3/uL (150-450); RED BLOOD COUNT 4.28 10^6/uL (3.72-5.28); RED CELL DISTRIBUTION WIDTH 14.2 % (11.5-14.0); SEGMENTED NEUTROPHILS % (AUTO) 66.5 % (42-78); TOTAL CELLS COUNTED % (AUTO) 100 %; WHITE BLOOD COUNT 4.7 10^3/uL (4.0-10.5)
[2018-02-01 08:11] LABS: ALANINE AMINOTRANSFERASE 14 U/L (9-52); ALBUMIN 4.7 g/dL (3.5-5.0); ALKALINE PHOSPHATASE 69 U/L (38-126); ANION GAP 10 (5-19); ASPARTATE AMINO TRANSFERASE 28 U/L (14-36); BILIRUBIN,DIRECT 0.4 mg/dL (0.0-0.4); BILIRUBIN,TOTAL 0.7 mg/dL (0.2-1.3); BLOOD UREA NITROGEN 8 mg/dL (7-20); CALCIUM 10.2 mg/dL (8.4-10.2); CARBON DIOXIDE 27 mmol/L (22-30); CHLORIDE 106 mmol/L (98-107); GLUCOSE 94 mg/dL (75-110); SODIUM 142.8 mmol/L (137-145); TOTAL PROTEIN 8.5 g/dL (6.3-8.2)
[2018-02-01 08:12] LABS: ACETAMINOPHEN < 10 ug/mL (10-30); ALCOHOL < 10 mg/dL (NONE DETECTED); SALICYLATE < 1.0 mg/dL (2.0-20.0)
[2018-02-01 08:30] LABS: APPEARANCE,URINE SLIGHTLY-CLOUDY; BILIRUBIN,URINE NEGATIVE (NEGATIVE); COLOR,URINE YELLOW; GLUCOSE, URINE NEGATIVE (NEGATIVE); KETONES,URINE NEGATIVE (NEGATIVE); LEUKOCYTE ESTERASE,URINE NEGATIVE (NEGATIVE); NITRITE,URINE NEGATIVE (NEGATIVE); PROTEIN,URINE 30 mg/dL (NEGATIVE); URINE SPECIFIC GRAVITY 1.014
[2018-02-01 08:44] LABS: URINE AMPHETAMINES SCREEN NEGATIVE; URINE BARBITURATES SCREEN NEGATIVE; URINE BENZODIAZEPINES SCREEN NEGATIVE; URINE COCAINE SCREEN NEGATIVE; URINE MARIJUANA (THC) SCREEN NEGATIVE; URINE METHADONE SCREEN NEGATIVE; URINE PHENCYCLIDINE SCREEN NEGATIVE
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
[2018-02-01 16:29] VITALS: BP 144/96
== END 2018-02-01 17:15 | disposition other institution (70) ==
LOC: ER 05:42
DX: F29 Unspecified psychosis not due to a substance or known physiological condition (principal); F17.200 Nicotine dependence, unspecified, uncomplicated
CPT/HCPCS: 36415; 80053; 80307; 81001; 85025; 93005; 93010; 99285